=== PATIENT | female | born 1985 | race American Indian/Alaskan Native ===

== ENCOUNTER 2020-07-01 16:36 | Emergency (ER) | payer MEDICAID, MEDICARE ==
--- NOTE | 2020-07-01 18:35 | Event Note ---
ED Screening Note Date of service: 07/01/20 Time: 18:34 ED Screening Note: Patient complains of abdominal pain in x last night Denies vaginal bleeding States 12 weeks This initial assessment/diagnostic orders/clinical plan/treatment(s) is/are subject to change based on patients health status, clinical progression and re- assessment by fellow clinical providers in the ED. Further treatment and workup at subsequent clinical providers discretion. Patient/guardian urged not to elope from the ED as their condition may be serious if not clinically assessed and managed. Initial orders include: Labs Ultrasound
[2020-07-01 19:06] LABS: Basophils % (Auto) 0.3 % (0.0-1.8); Eosinophils # (Auto) 0.1 K/mm3 (0.0-0.4); Eosinophils % (Auto) 1.1 % (0.0-4.3); Hemoglobin 9.4 gm/dl (10.1-14.3); Lymphocytes # (Auto) 1.8 K/mm3 (1.2-5.4); Lymphocytes % (Auto) 21.4 % (13.4-35.0); Mean Corpuscular HGB Conc 32 % (30-34); Mean Corpuscular Volume 86 fl (79-97); Monocytes # (Auto) 0.6 K/mm3 (0.0-0.8); Monocytes % (Auto) 6.8 % (0.0-7.3); Platelet Count 335 K/mm3 (140-440); Red Blood Count 3.36 M/mm3 (3.65-5.03); Red Cell Distribution Width 19.3 % (13.2-15.2)
[2020-07-01 19:21] LABS: Alanine Aminotransferase 10 units/L (7-56); Albumin 3.7 g/dL (3.9-5); Blood Urea Nitrogen 9 mg/dL (7-17); Calcium 9.5 mg/dL (8.4-10.2); Hemolysis Index 10
[2020-07-01 19:23] LABS: BUN/Creatinine Ratio 15
[2020-07-01 19:50] LABS: Bilirubin,Urine NEG (Negative); Blood,Urine NEG (Negative); Color,Urine Yellow (Yellow); Mucus,Urine FEW /HPF; Protein,Urine <15 mg/dL mg/dL (Negative); Urobilinogen,Urine < 2.0 mg/dL (<2.0)
--- NOTE | 2020-07-01 21:29 | Ultrasound Report ---
ULTRASOUND OBSTETRIC INDICATION / CLINICAL INFORMATION: pain in . TECHNIQUE: Transabdominal. COMPARISON: None available. FINDINGS: GESTATIONAL SAC: Well-defined oval shape and intrauterine in location. YOLK SAC: No significant abnormality. EMBRYO/FETUS: No significant abnormality. - Tebbetts-Rump Length = 3.5 cm = 10 weeks, 3 day(s). - Heart Rate, beats per minute (if present) = 157 ADNEXA: Left ovary not visualized secondary to adjacent bowel gas. 6.4 x 7.0 x 5.2 cm right ovarian f ollicular cyst. FREE FLUID: None. ADDITIONAL FINDINGS: None. IMPRESSION: 1. Single, living intrauterine with estimated sonographic age of 10 weeks, 3 day(s). 2. 7 cm right ovarian follicular cyst. No free fluid. 3. Left ovary not visualized Signer Name: Ivan Eisenberg MD Signed: 07/01/2020 9:24 PM Workstation Name: [id number]
--- NOTE | 2020-07-01 22:07 | Emergency Department Report ---
ED Female HPI - General Chief complaint: Weakness Stated complaint: ABD PAIN Time Seen by Provider: 07/01/20 20:03 Source: patient, EMS Mode of arrival: Ambulatory Limitations: No Limitations - History of Present Illness Initial comments: 3 34-year-old female presents emerged department complaining a couple day history of pelvic pain with an unknown etiology but reports no vaginal bleeding no vaginal discharge she is yet to follow-up with MICROECONOMICS PROFESSOR stating that she was waiting to get to the 28-week nelson. Pain is cramping and nature. Repor ts no hematemesis no hematochezia no hematuria no fever, chills, sweats no chest pain or palpitations. MD Complaint: pelvic pain -: Gradual Location: suprapubic Radiation: non-radiating Severity: mild Quality: dull Consistency: constant Improves with: none Worsens with: urination, movement Are you Now?: Yes Associated Symptoms: abdominal pain. denies: vaginal discharge, vaginal bleeding, fever/chills, headaches, loss of appetite, weakness - Related Data Previous Rx's Medication Instructions Recorded Last Taken Type Cyclobenzaprine [Flexeril] 10 mg PO TID PRN #20 tablet 04/20/16 Unknown Rx cephALEXin [Keflex] 500 mg PO Q8HR #21 capsule 07/01/20 Unknown Rx Allergies Allergy/AdvReac Type Severity Reaction Status Date / Time No Known Allergies Allergy Unverified 04/20/16 11:07 ED Review of Systems ROS: Stated complaint: ABD PAIN Other details as noted in HPI Comment: All other systems reviewed and negative ED Past Medical Hx - Past Medical History Previous Medical History?: Yes Hx Arthritis: Yes Additional medical history: PCD, Vaginal delivery X 1 - Surgical History Past Surgical History?: Yes Additional Surgical History: x 2, Left knee, Removal of ovarian cyst - Social History Smoking Status: Current Every Day Smoker Substance Use Type: Alcohol - Medications Home Medications: Home Medications Medication Instructions Recorded Confirmed Last Taken Type Cyclobenzaprine [Flexeril] 10 mg PO TID PRN #20 tablet 04/20/16 Unknown Rx cephALEXin [Keflex] 500 mg PO Q8HR #21 capsule 07/01/20 Unknown Rx ED Physical Exam - General Limitations: No Limitations General appearance: alert, in no apparent distress - Head Head exam: Present: atraumatic, normocephalic - Eye Eye exam: Present: normal appearance, PERRL Pupils: Present: normal accommodation - ENT ENT exam: Present: normal exam, normal orophraynx, mucous membranes moist, TM's normal bilaterally - Neck Neck exam: Present: normal inspection, full ROM - Respiratory Respiratory exam: Present: normal lung sounds bilaterally. Absent: respiratory distress, chest wall tenderness - Cardiovascular Cardiovascular Exam: Present: regular rate, normal rhythm. Absent: systolic murmur, diastolic murmur, rubs, gallop - GI/Abdominal GI/Abdominal exam: Present: soft, normal bowel sounds - Extremities Exam Extremities exam: Present: normal inspection, normal capillary refill - Back Exam Back exam: Present: normal inspection. Absent: CVA tenderness (R), CVA tenderness (L) - Neurological Exam Neurological exam: Present: alert, oriented X3, CN II-XII intact, motor sensory deficit - Psychiatric Psychiatric exam: Present: normal affect, normal mood - Skin Skin exam: Present: warm, dry, intact, normal color. Absent: rash ED Course Vital Signs 07/01/20 16:55 Temperature 98.8 F Pulse Rate 67 Respiratory 18 Rate Blood Pressure 110/64 O2 Sat by Pulse 100 Oximetry ED Medical Decision Making - Lab Data Result diagrams: 07/01/20 18:38 07/01/20 18:38 - Radiology Data Radiology results: [place] [address] Ultrasound Report Signed Patient: SOPHIA SANTIAGO MR#: [id number] : 1985 Acct:[id number] Age/Sex: 34 / F ADM Date: 07/01/20 Loc: ED Attending Dr: Ordering Physician: BRYAN POOLE Date of Service: 07/01/20 Procedure(s): US OB <= 14 weeks fetus Accession Number(s): [id number] cc: BRYAN POOLE ULTRASOUND OBSTETRIC INDICATION / CLINICAL INFORMATION: pain in . TECHNIQUE: Transabdominal. COMPARISON: None available. FINDINGS: GESTATIONAL SAC: Well-defined oval shape and intrauterine in location. YOLK SAC: No significant abnormality. EMBRYO/FETUS: No significant abnormality. - Lebo-Rump Length = 3.5 cm = 10 weeks, 3 day(s). - Heart Rate, beats per minute (if present) = 157 ADNEXA: Left ovary not visualized secondary to adjacent bowel gas. 6.4 x 7.0 x 5.2 cm right ovarian follicular cyst. FREE FLUID: None. ADDITIONAL FINDINGS: None. IMPRESSION: 1. Single, living intrauterine with estimated sonographic age of 10 weeks, 3 day(s). 2. 7 cm right ovarian follicular cyst. No free fluid. 3. Left ovary not visualized Signer Name: Ivan Eisenberg MD Signed: 07/01/2020 9:24 PM Workstation Name: [id number] Transcribed By: TL Dictated By: Ivan Eisenberg MD Electronically Authenticated By: Ivan Eisenberg MD Signed Date/Time: 07/01/202123 DD/ 21 TD/TT: - Medical Decision Making 34-year-old female presenting department complaining of pelvic pain of unknown etiology associated with some vague dysuria. She is found to have ovarian cyst and early signs of urinary tract infection involved and she was treated accordingly. Ultrasound did not show any emergent or urgent issues. No complications with help her via the ultrasound she is been advised to follow-up with an MICROECONOMICS PROFESSOR sooner than she had originally planned to follow along with her during this . Critical care attestation.: If time is entered above; I have spent that time in minutes in the direct care of this critically ill patient, excluding procedure time. ED Disposition Clinical Impression: Pelvic pain during in first trimester, antepartum, UTI (urinary tract infection), Ovarian cyst Disposition: DC-01 TO HOME OR SELFCARE Is pt being admited?: No Does the pt Need Aspirin: No Condition: Stable Instructions: Pelvic Pain, Female, [id number], Urinary Tract Infection, Adult, and Urinary Tract Infection Prescriptions: cephALEXin [Keflex] 500 mg PO Q8HR #21 capsule Referrals: PRIMARY CARE, [Primary Care Provider] - 3-5 Days [facility] [Provider Group] - 3-5 Days
[2020-07-01 22:35] VITALS: BP 115/70
== END 2020-07-01 22:35 | disposition home or self-care (01) ==
LOC: ED 16:36
DX: O23.41 Unspecified infection of urinary tract in pregnancy, first trimester (principal); O26.891 Other specified pregnancy related conditions, first trimester; O34.81 Maternal care for other abnormalities of pelvic organs, first trimester; N83.201 Unspecified ovarian cyst, right side; R10.2 Pelvic and perineal pain; M19.91 Primary osteoarthritis, unspecified site; F17.200 Nicotine dependence, unspecified, uncomplicated; Z3A.10 10 weeks gestation of pregnancy; Z98.890 Other specified postprocedural states; Z79.899 Other long term (current) drug therapy
CPT/HCPCS: 36415; 76801; 80053; 81001; 84702; 85025; 87086

== ENCOUNTER 2020-09-06 13:28 | Outpatient (CLI) | payer MEDICAID ==
[2020-09-06] MEDS ORDERED: LACTATED RINGERS 1,000 ML IV ONE (14:42)
[2020-09-06 15:07] LABS: Bacteria,Urine 1+ /HPF (Negative); Bilirubin,Urine NEG (Negative); Blood,Urine NEG (Negative); Color,Urine Yellow (Yellow); Urobilinogen,Urine < 2.0 mg/dL (<2.0)
--- NOTE | 2020-09-06 16:46 | Event Note ---
Date: 09/06/20 (pt d/c after assessment) Spoke with pt at length @ coming in for care. Pt states she has 2 kids and the office said only one can come with her. Asked pt to call office and make arrangment to be seen To not risk dismissal. Pt voiced understanding.
[2020-09-06 16:50] VITALS: BP 118/63
== END 2020-09-06 16:50 | disposition home or self-care (01) ==
LOC: TRG 13:28 → APU 13:36 → TRG 16:50
PROVIDERS: ATTEND Obstetrics & Gynecology
DX: O26.892 Other specified pregnancy related conditions, second trimester (principal); R10.9 Unspecified abdominal pain; M54.5 Low back pain; Z3A.20 20 weeks gestation of pregnancy
CPT/HCPCS: 81001; 87086

== ENCOUNTER 2020-10-04 15:59 | Outpatient (CLI) | payer OTHER, MEDICAID ==
[2020-10-04] MEDS ORDERED: LACTATED RINGERS 1,000 ML IV SCH (16:15)
[2020-10-04 16:32] VITALS: BP 107/56
--- NOTE | 2020-10-04 16:51 | Event Note ---
Date: 10/04/20 pt in triage c/o lower back pain and lower abd pain since this morning. She denies bleeding or leaking. pt reports hx of PTL. 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 SVE closed/thick/oop. + FM, fht NL for gestation. FFN collected. Plan for IV hydration and to send UA.
[2020-10-04 16:52] LABS: Bacteria,Urine 3+ /HPF (Negative); Bilirubin,Urine NEG (Negative); Blood,Urine NEG (Negative); Color,Urine Yellow (Yellow); Hyaline Casts,Urine 1 /LPF; Mucus,Urine FEW /HPF; Urobilinogen,Urine < 2.0 mg/dL (<2.0)
[2020-10-04] MEDS ORDERED: cefTRIAXone/NS 1 GM/50 ML 1 GM/50 ML BAG IV ONE (18:22)
== END 2020-10-04 19:44 | disposition home or self-care (01) ==
LOC: TRG 15:59 → APU 16:00 → TRG 19:44
PROVIDERS: ATTEND Obstetrics & Gynecology
DX: O26.892 Other specified pregnancy related conditions, second trimester (principal); M54.5 Low back pain; R10.30 Lower abdominal pain, unspecified; O47.02 False labor before 37 completed weeks of gestation, second trimester; Z3A.24 24 weeks gestation of pregnancy
CPT/HCPCS: 36415; 81001; 82731; 87086; 96361; 96365; J0696; J7120; Q0177

== ENCOUNTER 2020-12-01 14:37 | Outpatient (CLI) | payer OTHER, MEDICAID ==
[2020-12-01 14:53] VITALS: BP 119/76
[2020-12-01] MEDS ORDERED: LACTATED RINGERS 500 ML IV ONE (15:23)
[2020-12-01] MEDS ORDERED: ONDANSETRON 4 MG/2 ML INJ IV ONE (15:23)
[2020-12-01 16:44] LABS: Bacteria,Urine 1+ /HPF (Negative); Bilirubin,Urine NEG (Negative); Blood,Urine NEG (Negative); Color,Urine Yellow (Yellow); Protein,Urine <15 mg/dL mg/dL (Negative); Urobilinogen,Urine < 2.0 mg/dL (<2.0)
== END 2020-12-01 19:05 | disposition home or self-care (01) ==
LOC: TRG 14:37 → APU 15:03 → TRG 19:05
PROVIDERS: ATTEND Obstetrics & Gynecology
DX: O21.2 Late vomiting of pregnancy (principal); O10.913 Unspecified pre-existing hypertension complicating pregnancy, third trimester; O99.343 Other mental disorders complicating pregnancy, third trimester; F31.9 Bipolar disorder, unspecified; O47.03 False labor before 37 completed weeks of gestation, third trimester; Z3A.32 32 weeks gestation of pregnancy
CPT/HCPCS: 59025; 81001; 87086; 96361; 96374; J2405; J7120; 96360

== ENCOUNTER 2020-12-21 23:22 | Outpatient (CLI) | payer MEDICAID, OTHER ==
[2020-12-21] MEDS ORDERED: LACTATED RINGERS 1,000 ML IV ONE (23:55)
[2020-12-22 00:01] VITALS: BP 129/79
[2020-12-22 00:14] LABS: Bacteria,Urine 1+ /HPF (Negative); Bilirubin,Urine NEG (Negative); Blood,Urine NEG (Negative); Color,Urine Yellow (Yellow); Mucus,Urine FEW /HPF; Urobilinogen,Urine < 2.0 mg/dL (<2.0)
[2020-12-22] MEDS ORDERED: cefTRIAXone/NS 1 GM/50 ML 1 GM/50 ML BAG IV ONE (01:48)
[2020-12-22] MEDS ORDERED: ACETAMINOPHEN 500 MG TAB PO ONE (01:49)
== END 2020-12-22 02:35 | disposition home or self-care (01) ==
LOC: TRG 23:22 → APU 23:30 → TRG 12-22 02:35
PROVIDERS: ATTEND Obstetrics & Gynecology
DX: O62.9 Abnormality of forces of labor, unspecified (principal); O26.893 Other specified pregnancy related conditions, third trimester; M54.5 Low back pain; Z3A.35 35 weeks gestation of pregnancy
CPT/HCPCS: 59025; 81001; 87086; 96361; 96365; J0696; J7120; 96360

== ENCOUNTER 2021-01-11 15:19 | Outpatient (CLI) | payer OTHER, MEDICAID ==
[2021-01-11 16:16] VITALS: BP 133/83
--- NOTE | 2021-01-11 17:06 | Ultrasound Report ---
ULTRASOUND OBSTETRIC LIMITED ULTRASOUND BIOPHYSICAL PROFILE INDICATION / CLINICAL INFORMATION: well being. COMPARISON: None available. FINDINGS: BREATHING MOVEMENT = 2 GROSS BODY MOVEMENT = 2 TONE = 2 QUALITATIVE AMNIOTIC FLUID VOLUME = 2 TOTAL BIOPHYSICAL SCORE = 8/8 AMNIOTIC FLUID INDEX (cm) = 10.3 PRESENTATION: Cephalic. HEART RATE (beats per minute): 125 ADDITIONAL FINDINGS: None. IMPRESSION: 1. Biophysical Score = 8/8 Signer Name: Ivan Eisenberg MD Signed: 01/11/2021 5:02 PM Workstation Name: [id number]
== END 2021-01-11 16:35 | disposition home or self-care (01) ==
LOC: TRG 15:19 → APU 15:20 → TRG 16:35
PROVIDERS: ATTEND Obstetrics & Gynecology
DX: Z34.93 Encounter for supervision of normal pregnancy, unspecified, third trimester (principal); Z3A.38 38 weeks gestation of pregnancy
CPT/HCPCS: 59025; 76815; 76819

== ENCOUNTER 2021-01-17 07:30 | Inpatient (IN) | payer MEDICAID, OTHER ==
--- NOTE | 2021-01-16 13:47 | History and Physical Report ---
History of Present Illness Date of examination: 01/11/21 Date of admission: 01/16/2021 Chief complaint: here for c/s pre op History of present illness: Pt presents for pre op for c/s. All risk, benefits and alternatives were d/w pt and questions were addressed and answered. pt was noted to have audible decel while in the office and was sent to triage for evaluation. Triage nurse and providers chicken boner aware pt coming and stressed importance of f/u to evaluate for well being. Pt expressed understanding. Consents were signed and given to pt to bring to hospital on day of c/s. EDC Calculations LMP: 01/13/2021 EDC Confirmation: 01/24/2021 Gestational Age: 6 6/7 weeks Past History : 4 Term Births: 2 Premature Births: 1 Living Children: 3 Para: 3 Mult. Births: 0 Prev : 2 Aborta: 0 Elect. Ab: 0 Spont. Ab: 0 Ectopics: 0 # 1 Delivery date: 01/04/2008 Weeks Gestation: labor: yes Delivery type: Anesthesia type: epidural Infant Sex: Male weight: 3-11 Comments: Went into labor and had distress # 2 Delivery date: 02/01/2017 Weeks Gestation: term labor: no Delivery type: Anesthesia type: epidural Sex: Female weight: 5-11 # 3 Delivery date: 01/21/2019 Weeks Gestation: term labor: no Delivery type: Anesthesia type: spinal Sex: Male weight: 5-17 Past Medical History: Reviewed history and no changes required: Anemia Polycysitc kidney disease cHTN: no medications Sickle cell trait Bipolar Disease Depression Past Surgical History: Reviewed history and no changes required: Knee surgery : 2018 Past Medical History Anemia: positive Blood Transfusions: positive, Has had 7 blood transfusions Breast Disease: negative Diabetes: negative Heart Disease: negative Hypertension: positive, cHTN diagnosis, no meds Hepatitis/Liver Disease: negative Kidney Disease/UTI: positive, Polycystic kidney disease Neurologic/Epilepsy/Migraines: negative Phlebitis/Varicosities: negative Psychiatric: positive, Bipolor and depression Pulmonary Disease/Asthma: negative Thyroid Disease: negative Hospitalizations: positive Surgery (Non-cellular plastics cutter): Knee surgery : 2018 Abnormal PAP: negative ROMAN Exposure: negative Infertility: negative Uterine Anomaly: negative Uterine Surgery (not C/S): negative Other Gynecologic Problems: negative Family Hx: Kidney disease: MGM, mother HTN Infection History Hx of STD: none HIV Risk Eval: no Hepatitis B Risk Eval: low risk Personal hx. of genital herpes: no Partner hx. of genital herpes: no Rash, Viral, or Febrile illness since last LMP? no Varicella/Chicken Pox Status: Previous Disease TB Risk: no Genetic History Congenital Heart Defect: Mom: no Dad: no Aditi Disease: Mom: no Dad: no Thalassemia Mom: no Dad: no Neural Tube Defect Mom: no Dad: no Down's Syndrome Mom: no Dad: no James-Sachs Mom: no Dad: no Sickle Cell Disease/Trait Mom: yes Dad: no Hemophilia Mom: no Dad: no Muscular Dystrophy Mom: no Dad: no Cystic Fibrosis Mom: no Dad: no Ness Chorea Mom: no Dad: no Mental Retardation Mom: no Dad: no Fragile X Mom: no Dad: no Other Genetic/Chromosomal Disorder Mom: no Dad: no Child w/other defect Mom: no Dad: no Enviromental Exposures Enviromental Exposures Reviewed Xray Exposure: no Medication, drug, or alcohol use since LMP: no Chemical/Other Exposure: no Exposure to Cat Liter: no Hx of Parvovirus (Fifth Disease): no Occupational Exposure to Children: none Active Medications (reviewed today): 28-0.8 MG ORAL TABLET ( VIT-FE FUMARATE-FA) Take one tablet daily ONDANSETRON 8 MG ORAL TABLET DISINTEGRATING (ONDANSETRON) 1 po q12hrs prn PNV GUMMIES () Current Allergies (reviewed today): * SEASONAL ALLERGIES (Critical) Past History Past Medical History: other (see hpi) Past Surgical History: other (see hpi) HUMAN RELATIONS PROFESSOR History: other (see hpi) Family/Genetic History: other (see hpi) Social history: other (see hpi) - Obstetrical History Expected Date of Delivery: 01/24/21 Actual Gestation: 38 Week(s) 6 Day(s) : 4 Para: 3 Hx # Term Pregnancies: 2 Number of Pregnancies: 1 Number of Living Children: 3 Medications and Allergies Allergies Allergy/AdvReac Type Severity Reaction Status Date / Time No Known Allergies Allergy Verified 12/01/20 14:56 Home Medications Medication Instructions Recorded Confirmed Last Taken Type Cyclobenzaprine [Flexeril] 10 mg PO TID PRN #20 tablet 04/20/16 Unknown Rx cephALEXin [Keflex] 500 mg PO Q8HR #21 capsule 07/01/20 Unknown Rx Nitrofurantoin Brooks/M-Cryst 100 mg PO Q12HR #14 capsule 09/06/20 Unknown Rx [Macrobid CAP] Review of Systems All systems: negative - Physical Exam Cardiovascular: Normal S1, Normal S2 Lungs: Positive: Clear to auscultation, Normal air movement Abdomen: Positive: normal appearance, soft. Negative: guarding Genitourinary (Female): Positive: other (deferred) Results All other labs normal. Assessment and Plan - Patient Problems (1) 39 weeks gestation of Status: Acute (2) Previous delivery affecting , antepartum Status: Acute Plan to address problem: -admit and prepare for c/s -consents were signed and given to pt to bring to hospital and copies placed on the chart.
[~2021-01-17 07:30] MED LIST: BICITRA ORAL LIQD 30ML PO NR; FAMOTIDINE 20 MG/2 ML INJ IV NR; LACTATED RINGERS 1,000 ML IV SCH; METOCLOPRAMIDE 10 MG/2 ML INJ IV NR; OXYTOCIN DRIP 30 UNITS/500 ML BAG IV SCH; ceFAZolin/Water 2 GM/20 ML 2 GM/20 ML SYRINGE IV NR
[2021-01-17 14:19] LABS: Basophils # (Auto) 0.1 K/mm3 (0.0-0.1); Eosinophils # (Auto) 0.1 K/mm3 (0.0-0.4); Eosinophils % (Auto) 0.6 % (0.0-4.3); Hemoglobin 11.3 gm/dl (10.1-14.3); Lymphocytes # (Auto) 2.1 K/mm3 (1.2-5.4); Lymphocytes % (Auto) 22.3 % (13.4-35.0); Mean Corpuscular HGB Conc 33 % (30-34); Mean Corpuscular Volume 93 fl (79-97); Monocytes # (Auto) 0.5 K/mm3 (0.0-0.8); Monocytes % (Auto) 5.5 % (0.0-7.3); Platelet Count 233 K/mm3 (140-440); Red Blood Count 3.65 M/mm3 (3.65-5.03); Red Cell Distribution Width 13.6 % (13.2-15.2)
[2021-01-17] MEDS ORDERED: BUPIVACAINE/PF (0.5%) 5 MG/1 ML 30 ML VIAL INFILTRATI ONE (15:17)
[2021-01-17] MEDS ORDERED: PHENYLEPHRINE 10 MG/1 ML INJ SDV ONE (15:17)
[2021-01-17] MEDS ORDERED: dexAMETHasone 20 MG/5 ML VIAL ONE (15:17)
[2021-01-17] MEDS ORDERED: KETOROLAC 30 MG/1 ML INJ ONE (15:17)
[2021-01-17] MEDS ORDERED: SODIUM CHLORIDE 0.9% 100 ML ONE (15:17)
[2021-01-17] MEDS ORDERED: ONDANSETRON 4 MG/2 ML INJ ONE (15:17)
--- NOTE | 2021-01-17 15:21 | Anesthesia Consultation ---
Anesthesia Consult and Med Hx Date of service: 01/17/21 - Airway Anesthetic Teeth Evaluation: Good ROM Head & Neck: Adequate Mental/Hyoid Distance: Adequate Mallampati Class: Class II Intubation Access Assessment: Probably Good - Pulmonary Exam CTA: Yes - Cardiac Exam Cardiac Exam: RRR - Pre-Operative Health Status ASA Pre-Surgery Classification: ASA3 Proposed Anesthetic Plan: Spinal - Pulmonary Hx Asthma: No COPD: No Hx Pneumonia: No - Cardiovascular System Hx Hypertension: Yes - Central Nervous System Hx Seizures: No Hx Psychiatric Problems: Yes (BIPOLAR, DEPRESSION) - Endocrine Hx Renal Disease: Yes (POLYCYSTIC KIDNEY) Hx End Stage Renal Disease: No Hx Hypothyroidism: No Hx Hyperthyroidism: No - Hematic Hx Anemia: Yes Hx Sickle Cell Disease: No - Other Systems Hx Alcohol Use: No
--- NOTE | 2021-01-17 15:21 | Anesthesia Day of Surgery ---
Anesthesia Day of Surgery - Day of Surgery Patient Examined: Yes Patient H&P Reviewed: Yes Patient is NPO: Yes
[2021-01-17] MEDS ORDERED: ceFAZolin/STERILE WATER 2 GM/20 ML SYRINGE IV ONE (16:45)
[2021-01-17] MEDS ORDERED: WATER FOR IRRIG STERILE 1,500 ML BOTTLE IR ONE (16:55)
[2021-01-17] MEDS ORDERED: SODIUM CHLORIDE 0.9% IRR 1,500 ML BOTTLE IR ONE (16:55)
[2021-01-17] MEDS ORDERED: ePHEDrine SULFATE 50 MG/1 ML INJ ONE (17:35)
--- NOTE | 2021-01-17 18:00 | Operative Report ---
Operative Report Operative Report: Date of procedure: 01/17/2021 Pre-operative diagnosis: Intrauterine at 39 weeks with previous xander dung section x2 Post-operative diagnosis: Same Procedure name(s): Repeat low transverse section Surgeon: Jose Antonio Reid MD Artificial Candy Maker: Whitney Coombs CST Anesthesia: Spinal EBL: QBL 321 cc Complications: None Findings: Patient with normal appearing uterus with adhesions on anterior uterus to bladder and omentum to the rectus muscles male infant weight 5 pounds 14 ounc es Apgars 8 at 1 minute and 9 at 5 minutes Specimen(s): None Procedure: The patient was brought to the operating room. A spinal was placed without any complications. She was then placed in left lateral tilt. Prepped and draped in the usual sterile manner. After testing for adequate anesthesia level, a Pfannenstiel incision was made through her previous scar. This incision was taken down to the fascia. The fascia was then nicked in the midline. This incision was extended out laterally with Alberto scissors. The fascia was then sharply and bluntly from the underlying rectus m uscles. The omental adhesions were taken down with cautery. The rectus muscles were bluntly and sharply . The peritoneum was then entered with the tracer lathe set up operator's fingers. This incision was spread vertically with care not to damage the bladder below. The bladder flap was then formed sharply and bluntly with Metzenbaum scissors. The Ashwin self-retaining tractor was then placed without any difficulty. A transverse incision was made in lower uterine segment. This incision was extended laterally with the operators fingers. The amniotic sac was then entered bluntly with the tracer lathe set up operator's fingers. The was delivered from the vertex position. Bulb suction on the mother's abdomen. Cord was double clamped and cut. The infant was then passed to the nursery personnel who were in attendance. The above scores were given by the nursery personnel. The placenta was then bluntly removed. The uterus was then externalized and wiped clean the remaining products. The uterine incision was closed in layers. The first incision was closed in a locking manner using 0 Vicryl. This was followed by imbricating stitch also with 0 Vicryl. This closure was hemostatic. The bladder flap was copiously irrigated and found to be hemostatic. The pelvis was copiously irrigated and found to be hemostatic. The uterus was then placed back to the patient's abdomen. The retractors were removed. The rectus muscles were inspected and found to be hemostatic. The fascia was then closed in a running manner using 0 Vicryl. This incision was hemostatic after irrigation and Bovie. The disc space was reapproximated with interrupted Vicryl sutures. The skin was reapproximated with 4-0 Vicryl subcuticularly. Dermabond was placed along the skin closure. The patient tolerated procedure well. Her urine was clear. The was admitted to the well baby nursery. The patient was accompanied to recovery room in good condition. Instrument count correct x3.
--- NOTE | 2021-01-17 18:02 | Progress Note ---
Spinal Anesthesia Block - Spinal Anesthesia Block Start Time: 16:32 Stop Time: 16:40 Performed by:: TUSHAR BUI Procedure: Sitting, sterile chlorahexadine 0.5% prep/drape, 1% lidocaine skin local, 25G spinal needle + introducer at L3-4, + CSF, - Heme, [1.9 ml 0.5% bupivacaine + 10 mcg dexmedetomidine] injected, drape removed, patient positioned supine with left uterine displacement, and spinal level verified to be adequate prior to surgery. SRNA
--- NOTE | 2021-01-17 18:03 | Progress Note ---
Regional Anesthesia Block - Regional Anesthesia Block Start Time: 17:50 Stop Time: 17:55 Performed By:: TUSHAR BUI Procedure: U/S guided bilateral tap block performed for post-operative pain requested by Dr. Reid. H&P & labs reviewed. Procedure explained, questions answered, consent obtained. Patient in the supine position with ekg, blood pressure cuff and pulse ox on and working in PACU. Timeout performed immediately before start of procedure. Probe placed in the mid-axillary line and the external oblique, internal oblique, and transverse abdominus muscles identified. Skin was cleansed with chlorahexadine 0.5% and allowed to dry. A 4" 20 G Caceres echogenic needle was advanced in plane until the tip was in the fascial plane between the internal oblique and the transverse abdominus. After negative aspiration 35 ml/side of [30 ml 0.5% Bupivacaine], [10 mg dexamethasone], and [40 ml sterile saline] was injected in 5 ml increments with negative aspiration in between. Patient tolerated procedure well. SRNA
[2021-01-17 19:38] LABS: Hematocrit 32.3 % (30.3-42.9); Hemoglobin 10.9 gm/dl (10.1-14.3); Mean Corpuscular HGB Conc 34 % (30-34); Mean Corpuscular Volume 94 fl (79-97); Platelet Count 179 K/mm3 (140-440); Red Blood Count 3.45 M/mm3 (3.65-5.03); Red Cell Distribution Width 13.5 % (13.2-15.2)
[2021-01-17] MEDS ORDERED: OXYTOCIN DRIP 30 UNITS/500 ML BAG IV SCH (20:54)
[2021-01-17] MEDS ORDERED: WITCH HAZEL/ GLYCERIN PAD TP PRN (20:54)
[2021-01-17] MEDS ORDERED: NALOXONE 0.4 MG/1 ML INJ IV PRN (20:54)
[2021-01-17] MEDS ORDERED: HYDROcodone/ACETAMINOPHEN 5-325 MG TAB PO PRN (20:54)
[2021-01-17] MEDS ORDERED: MAGNESIUM HYDROXIDE (MOM) ORAL LIQD UDC PO PRN (20:54)
[2021-01-17] MEDS ORDERED: D5W/LACTATED RINGERS 1,000 ML IV SCH (20:54)
[2021-01-17] MEDS ORDERED: LANOLIN/ZINC/DIMETHICONE (LANSINOH) 7 GM TP PRN (20:54)
[2021-01-17] MEDS ORDERED: ONDANSETRON 4 MG/2 ML INJ IV PRN (20:54)
[2021-01-17] MEDS: KETOROLAC 30 MG/1 ML INJ IV SCH (22:56)
[2021-01-18] MEDS: ceFAZolin/NS 1 GM/50 ML 1 GM/50 ML BAG IV SCH ×2 (01:30→09:07)
[2021-01-18] MEDS: KETOROLAC 30 MG/1 ML INJ IV SCH ×2 (05:02→14:29)
[2021-01-18] MEDS ORDERED: HYDROcodone/ACETAMINOPHEN 5-325 MG TAB PO ONE (05:59)
[2021-01-18 06:58] LABS: Hematocrit 25.4 % (30.3-42.9); Hemoglobin 8.6 gm/dl (10.1-14.3)
--- NOTE | 2021-01-18 07:14 | Progress Note ---
Assessment and Plan A: 35 y.o. s/p rpt , POD #1. P: Continue with care. Encourage early ambulation. Pain medication changed to 2 pills PO q 6 hrs. Anticipate discharge home in AM. Subjective - Subjective Date of service: 01/18/21 (States having some pain. ) Principal diagnosis: Rpt @ term. Patient reports: appetite normal, voiding normally, flatus, pain poorly controlled (Pain medication changed to 2 PO q 6 hrs. ), ambulating normally [place]: doing well Objective - Vital Signs Latest vital signs: Vital Signs Temp Pulse Resp BP BP Pulse Ox 01/18/21 04:59 98.2 F 65 20 118/58 97 01/18/21 04:00 18 01/18/21 00:36 18 01/17/21 23:44 97.4 F L 62 18 127/71 100 01/17/21 20:30 97.4 F L 48 L 16 160/83 100 01/17/21 18:25 46 L 14 158/85 100 01/17/21 18:10 45 L 14 158/86 100 01/17/21 17:56 44 L 14 115/76 100 01/17/21 17:51 53 L 14 107/68 100 01/17/21 17:45 63 12 119/70 100 01/17/21 17:42 97.6 F 64 14 128/69 100 01/17/21 15:16 57 L 141/85 01/17/21 14:48 71 99 01/17/21 14:42 57 L 163/85 01/17/21 14:40 97.8 F 66 16 163/85 100 Intake and Output 01/17/21 01/18/21 01/18/21 22:59 06:59 14:59 Intake Total 950 920 Output Total 1500 1050 Balance -550 -130 Intake: IV 950 Oral 680 Intake, Free Water 240 Output: Urine 1500 1050 Indwelling Catheter 200 200 Uretheral (Dsouza) 400 850 Other: Total, Intake Amount 200 Total, Output Amount 200 200 Estimated Blood Loss 462 - Exam Breasts: Present: deferred Cardiovascular: Present: Regular rate Lungs: Present: Clear to auscultation Abdomen: Present: normal appearance, soft, other (Hypoactive bowel sounds) Uterus: Present: normal, firm Extremities: Present: normal Deep Tendon Reflex Grade: Normal +2 Incision: Present: normal, dry, intact - Labs Labs: Abnormal lab results 01/17/21 01/17/21 01/18/21 Range/Units 14:00 18:54 06:40 RBC 3.45 L (3.65-5.03) M/mm3 Hgb 8.6 L (10.1-14.3) gm/dl Hct 25.4 L D (30.3-42.9) % Seg Neutrophils % 70.6 H (40.0-70.0) %
[2021-01-18] MEDS: FERROUS SULFATE 325 MG TAB PO SCH (09:07)
--- NOTE | 2021-01-18 13:15 | Event Note ---
Date: 01/18/21 (Smoking) Received a call from the RN that patient has been going outside to smoke. Discussed with patient that she should not smoke around the baby and she can not go outside to smoke. Pt states she has only been outside one time to smoke and has not been outside since this AM. Pt agrees to a nicotine patch. Ordered placed. Also we discussed that patient can not go home today, but will be discharged in the AM if she remains stable. Patient verbalized understanding.
[2021-01-18] MEDS: HYDROcodone/ACETAMINOPHEN 5-325 MG TAB PO PRN ×2 (13:33→18:41)
[2021-01-18] MEDS ORDERED: NICOTINE 21 MG/24 HR PATCH TD SCH (14:00)
--- NOTE | 2021-01-18 17:42 | Post Anesthesia Evaluation ---
- Post Anesthesia Evaluation Patient Participated: Yes Airway Patent: Yes Stable Respiratory Function: Yes Nausea/Vomiting: No Temp > 96.8F: Yes Pain Manageable: Yes Adequeate Hydration: Yes Anesthesia Complications: No Block Receding Appropriately: Yes
[2021-01-18] MEDS ORDERED: IBUPROFEN 800 MG TAB PO PRN (17:46)
--- NOTE | 2021-01-18 19:13 | Event Note ---
Date: 01/18/21 (Mental health assessment ordered.) Received a call from RN that patient's depression scale score was 17. A mental health assessment was ordered at this time. Also patient was on Zoloft prenatally. Zoloft 50mg daily ordered. RN aware of Zoloft order.
[2021-01-18] MEDS: SERTRALINE 50 MG TAB PO SCH (23:30)
[2021-01-19] MEDS: HYDROcodone/ACETAMINOPHEN 5-325 MG TAB PO PRN ×2 (01:35→07:49)
--- NOTE | 2021-01-19 07:17 | Discharge Summary ---
Providers - Providers Date of Admission: 01/17/21 13:15 Date of discharge: 01/19/21 (Pt desires d/c She is aware MH must clear her for d/c ) Attending physician: NERIS ECHEVERRIA 01/17/21 20:54 Consult to Service Secretary [CONS] Routine Reason For Exam: 01/18/21 18:47 psychiatry consult [Consult to Mental Health] [CONS] Routine Reason For Exam: [place] Score 17 Primary care physician: NERIS ECHEVERRIA Hospitalization Reason for admission: section, IUP at term Procedure: repeat low transverse Episiotomy: none Laceration: none Incision: normal, dry, intact Other procedures: none complications: other (ED score 17 consult) Discharge diagnosis: IUP at term delivered [place] baby: male Condition at discharge: Good Disposition: DC-01 TO HOME OR SELFCARE - Discharge Diagnoses (1) delivery delivered Status: Acute Comment: RTO 1 week PP care (2) Depression Status: Acute Qualifiers: Depression Type: depression Qualified Code(s): O99.345 - Other mental disorders complicating the puerperium; F53.0 - depression; O90.6 - mood disturbance Comment: Pt will d/c on Zoloft 50mg QD Will hold d/c until released by Plan - Discharge Medications Prescriptions: Lidocain2.5%/Prilocai2.5% [Emla] 5 gm TP ONCE #1 tube Ferrous Sulfate [Feosol 325 MG tab] 325 mg PO BID #60 tablet Ibuprofen [Motrin] 800 mg PO TID PRN #30 tablet PRN Reason: Pain oxyCODONE /ACETAMINOPHEN [Percocet 5/325 mg] 1 - 2 tab PO Q6HR PRN #20 tablet PRN Reason: Pain - Provider Discharge Summary Activity: routine, no sex for 6 weeks, no heavy lifting 4 weeks, no strenuous exercise, other (STOP SMOKING) Diet: routine Instructions: routine Additional instructions: [] Smoking cessation referral if applicable(refer to patient education folder for contact #) [] Refer to [facility]'s [facility] Booklet Call your doctor immediately for: * Fever > 100.5 * Heavy vaginal bleeding ( >1 pad per hour) * Severe persistent headache * Shortness of breath * Reddened, hot, painful area to leg or breast * Drainage or odor from incision. * Keep incision clean and dry at all times and follow doctor's instructions regarding bathing/showering - Follow up plan Follow up: NERIS ECHEVERRIA MD [Primary Care Provider] - 7 Days (Congratulations! Please call [phone] to schedule your postoperative visit and your son's circumcision in 1 week. Bring the EMLA cream with you to his visit. Do NOT use at home. Take medications as prescribed. Call with concerns.)
--- NOTE | 2021-01-19 08:44 | Consultation ---
History of Present Illness - Reason for Consult Consult date: 01/19/21 Reason for consult: MHE Requesting physician: NERIS ECHEVERRIA - Chief Complaint Chief complaint: here for c/s pre op - History of Present Psychiatric Illness PSYCH HPI Patient is a 35 year old single unemployed, Female with PMHx of Bipolar and Depression who was admitted for child delivery and subsequent psych consult for elevated endinburgh. Patient states she has not been on her meds due to , endorses having intermittent mood cycle sometimes depressed and not but denies suicidal thoughts. Patient she plans not to breastfeed so she can restart her medications. She endorses prior admission for anger management but no suicidal attempt in the past. Patient states she currrently resides with her BF and 4 other kids and was angry yesterday because they would not let her smoke. PAST PSYCHIATRIC HISTORY Diagnoses: Bipolar, depression and anxiety Suicide attempts or Self-harm behavior: None Prior psychiatric hospitalizations: yes for anger management Substance Abuse history: marijuana Previous psychiatric medications tried: trazodone Outpatient treatment: PAST MEDICAL HISTORY: PCKD, SS Family Psychiatric History: None reported or documented SOCIAL HISTORY Marital Status: single Living Arrangements: with Employment Status: unemployed Access to guns/weapons: none Education: college drop out History of Abuse: none Legal History: none REVIEW OF SYSTEMS Constitutional: Negative for weight loss ENT: Negative for stridor Respiratory: Negative for cough or hemoptysis All other systems reviewed and are negative MENTAL STATUS EXAMINATION General Appearance and Behavior: Age appropriate, good hygiene, wearing appropriate clothes,, good eye contact Cooperation: Participating/engaged, but Guarded Psychomotor Behavior: Psychomotor normal Mood: "on and Off" Affect and affective range:flat Thought Process: logical Thought Content: within reality Speech: Normal rate, volume and rythm Intellectual Functioning: Average Suicidal Ideation: denies SI Homicidal Ideation: Denies HI Impulse Control: Impaired Insight and Judgment: Limited insight and judgment Memory: Normal Attention: Normal Orientation: Alert, oriented Diagnoses: His of Bipoalr Treatment Plan MEDICATIONS: pt can start Trazodone and Zoloft with outpt psychiatry follow up Risks, benefits and alternatives of medications discussed with the patient, questions answered and consent obtained from patient. PSYCHOTHERAPY: Supportive psychotherapy provided MEDICAL: Per primary team DELIRIUM PRECAUTIONS: Please re-orient patient frequently, keep lights on during the day, and minimize benzodiazepines and opiates as these medications could worsen patient's confusion. 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 Case discussed with Dr. Solomon who agrees with current disposition LEGAL STATUS: voluntary FOLLOW-UP: Will sign Thank you for the consult. Please contact with any questions and/or concerns. Medications and Allergies Allergies Allergy/AdvReac Type Severity Reaction Status Date / Time No Known Allergies Allergy Verified 01/17/21 13:44 Home Medications Medication Instructions Recorded Confirmed Last Taken Type Cyclobenzaprine [Flexeril] 10 mg PO TID PRN #20 tablet 04/20/16 01/17/21 Unknown Rx cephALEXin [Keflex] 500 mg PO Q8HR #21 capsule 07/01/20 01/17/21 Unknown Rx Nitrofurantoin [place]/M-Cryst 100 mg PO Q12HR #14 capsule 09/06/20 01/17/21 Unknown Rx [Macrobid CAP] Ferrous Sulfate [Feosol 325 MG tab] 325 mg PO BID #60 tablet 01/17/21 Unknown Rx Ibuprofen [Motrin] 800 mg PO TID PRN #30 tablet 01/17/21 Unknown Rx Lidocain2.5%/Prilocai2.5% [Emla] 5 gm TP ONCE #1 tube 01/17/21 Unknown Rx Multivitamin Tablet 1 tab PO DAILY 01/17/21 01/17/21 01/16/21 10:00 History oxyCODONE /ACETAMINOPHEN [Percocet 1 - 2 tab PO Q6HR PRN #20 tablet 01/17/21 Unknown Rx 5/325 mg] Sertraline [Zoloft] 50 mg PO QDAY #30 tablet 01/19/21 Unknown Rx traZODone [Desyrel] 50 mg PO QHS #30 tab 01/19/21 Unknown Rx Active Meds: Active Medications Hydrocodone Bitart/Acetaminophen (Hydrocodone/Acetaminophen 5-325 Mg Tab) 2 each PO Q6H PRN PRN Reason: Pain, Moderate (4-6) Last Admin: 01/19/21 07:49 Dose: 2 each Documented by: Ferrous Sulfate (Ferrous Sulfate 325 Mg Tab) 325 mg PO QDAY OSMAN Last Admin: 01/18/21 09:07 Dose: 325 mg Documented by: Dextrose/Lactated Ringer's ([email or web address]) 1,000 mls @ 125 mls/hr IV DIRECT OSMAN Oxytocin/Sodium Chloride (Pitocin/Ns 30 Unit/500ml) 30 units in 500 mls @ 40 mls/hr IV TITR OSMAN Ibuprofen (Ibuprofen 800 Mg Tab) 800 mg PO Q6H PRN PRN Reason: Pain, Moderate (4-6) Magnesium Hydroxide (Magnesium Hydroxide (Mom) Oral Liqd Udc) 30 ml PO QHS PRN PRN Reason: Constip Unrelieved By Senna Multi-Ingredient Ointment (Lanolin/Zinc/Dimethicone (Lansinoh) 7 Gm) 1 applic TP PRN PRN PRN Reason: dryness/cracking Naloxone HCl (Naloxone 0.4 Mg/1 Ml Inj) 0.1 mg IV Q2MIN PRN PRN Reason: Res Rate </= 8 or 02 SAT < 92% Nicotine (Nicotine 21 Mg/24 Hr Patch) 21 mg TD QDAY [facility] Last Admin: 01/18/21 14:00 Dose: Not Given Documented by: Ondansetron HCl (Ondansetron 4 Mg/2 Ml Inj) 4 mg IV Q8H PRN PRN Reason: Nausea And Vomiting Sertraline HCl (Sertraline 50 Mg Tab) 50 mg PO QDAY [facility] Last Admin: 01/18/21 23:30 Dose: 50 mg Documented by: Witch Janet/Glycerin (Witch Janet/ Glycerin Pad) 1 each TP PRN PRN PRN Reason: Hemorrhoids/cleansing/soothing Mental Status Exam - Vital signs Last Vital Signs Temp 98.1 F 01/19/21 00:41 Pulse 57 L 01/19/21 00:41 Resp 14 01/19/21 01:35 BP 132/72 01/19/21 00:41 Pulse Ox 99 01/19/21 00:41 Results Result Diagrams: 01/18/21 06:40 All other labs normal.
[2021-01-19] MEDS: SERTRALINE 50 MG TAB PO SCH (09:38)
[2021-01-19] MEDS: FERROUS SULFATE 325 MG TAB PO SCH (09:38)
[2021-01-19 11:35] VITALS: BP 159/91
--- NOTE | 2021-01-19 12:49 | Event Note ---
Date: 01/19/21 (RN called to notify me of elevated BP) I was outside the hospital at the time of this call RN reported pt's BP elevated X 2 (146/84, 152/91)this AM. Gave order to send to L&D for 24hr MGSO4 . RN called back shortly stating pt refused therapy and wanted to leave AMA. I called and spoke with the pt via phone and tried to explain the concerns of PreE in the PP period ie stroke, seizure, with untreated BP. Pt stated that her pressure would go down once she left "I was ready to go yesterday." Pt voiced understanding of leaving AMA Her RX were given to her and she was encouraged to f/u postop as instructed. the original d/c was written based on clearance by which the pt received Dr Reid notified of occurrence and pt's desire to leave AMA.
== END 2021-01-19 13:00 | disposition left against medical advice (07) | DRG 787 ==
LOC: APU 13:15 → OB 20:54
PROVIDERS: ADMIT Obstetrics & Gynecology; ATTEND Obstetrics & Gynecology
PROC: 10D00Z1 Extraction of Products of Conception, Low, Open Approach (ICD-10-PCS; principal; 2021-01-17)
PROC: 3E0T3BZ Introduction of Anesthetic Agent into Peripheral Nerves and Plexi, Percutaneous Approach (ICD-10-PCS; 2021-01-17)
DX: O34.211 Maternal care for low transverse scar from previous cesarean delivery (principal); O10.92 Unspecified pre-existing hypertension complicating childbirth; D62 Acute posthemorrhagic anemia; Z3A.39 39 weeks gestation of pregnancy; Z37.0 Single live birth; Z53.29 Procedure and treatment not carried out because of patient's decision for other reasons; Z20.822 Contact with and (suspected) exposure to COVID-19; O99.345 Other mental disorders complicating the puerperium; F53.0 Postpartum depression; O99.344 Other mental disorders complicating childbirth; F41.9 Anxiety disorder, unspecified; O90.81 Anemia of the puerperium
CPT/HCPCS: 36415; 85014; 85018; 85025; 85027; 86850; 86900; 86901; G0378; C1765; J0690; J1100; J1885; J2370; J2405; J2765; J3490; J7120; U0003

== ENCOUNTER 2021-01-31 00:17 | Observation (INO) | payer OTHER, MEDICAID ==
[2021-01-31] MEDS ORDERED: hydrALAZINE 20 MG/1 ML INJ IV ONE (03:22)
[2021-01-31] MEDS ORDERED: METOCLOPRAMIDE 10 MG/2 ML INJ IV ONE (03:24)
[2021-01-31] MEDS ORDERED: MAGNESIUM SULFATE 40GM/1000ML 40 GM/1,000 ML BAG IV ONE (03:26)
[2021-01-31] MEDS ORDERED: MAGNESIUM SULFATE 4 GM/100 ML BAG IV ONE (03:26)
--- NOTE | 2021-01-31 03:27 | Emergency Department Report ---
ED General Adult HPI - General Chief complaint: High BP Stated complaint: HEADACHE/C SECTION LEAKING/POST DELIVERY 01/17 PUI?: No Time Seen by Provider: 01/31/21 03:13 Source: patient, RN notes reviewed, old records reviewed Mode of arrival: Ambulatory Limitations: No Limitations - History of Present Illness Initial comments: During the history and physical examination, I am chaperoned by nurse Juana Gomez The patient is a 35-year-old female. Her [employer] doctor is Dr. Reid. Past medical history includes polycystic kidneys, , ovarian cyst, and presumed depression. Patient presents to the ER today with a complaint of nontraumatic headache, which is not sudden or thunderclap in nature, not maximal in intensity, frontal and bitemporal, associated with high blood pressure, lower extremity swelling, and no loss of vision. No fever, no vomiting, no chest pain. Positive abdominal cramping. Also complains of bloody/purulent discharge from wound. No dysuria. Positive scant vaginal bleeding. No body aches or Covid symptoms. Positive foot swelling. No Covid symptomatology. Called of her [employer] and she was instructed to come to the emergency room for evaluation. -: Gradual, hour(s) Location: head, abdomen Severity scale (0 -10): 0 Quality: aching Consistency: constant Improves with: none Worsens with: none - Related Data Home Medications Medication Instructions Recorded Confirmed Last Taken Multivitamin Tablet 1 tab PO DAILY 01/17/21 01/31/21 01/31/21 10:00 Previous Rx's Medication Instructions Recorded Last Taken Type Cyclobenzaprine [Flexeril] 10 mg PO TID PRN #20 tablet 04/20/16 Unknown Rx cephALEXin [Keflex] 500 mg PO Q8HR #21 capsule 07/01/20 Unknown Rx Nitrofurantoin Calhoun/M-Cryst 100 mg PO Q12HR #14 capsule 09/06/20 Unknown Rx [Macrobid CAP] Ferrous Sulfate [Feosol 325 MG tab] 325 mg PO BID #60 tablet 01/17/21 Unknown Rx Ibuprofen [Motrin] 800 mg PO TID PRN #30 tablet 01/17/21 Unknown Rx Lidocain2.5%/Prilocai2.5% [Emla] 5 gm TP ONCE #1 tube 01/17/21 Unknown Rx oxyCODONE /ACETAMINOPHEN [Percocet 1 - 2 tab PO Q6HR PRN #20 tablet 01/17/21 Unknown Rx 5/325 mg] Sertraline [Zoloft] 50 mg PO QDAY #30 tablet 01/19/21 01/31/21 10:00 Rx traZODone [Desyrel] 50 mg PO QHS #30 tab 01/19/21 Unknown Rx NIFEdipine XL [Procardia Xl] 60 mg PO Q12HR #30 tab 01/31/21 Unknown Rx Allergies Allergy/AdvReac Type Severity Reaction Status Date / Time No Known Allergies Allergy Verified 01/31/21 08:28 ED Review of Systems ROS: Stated complaint: HEADACHE/C SECTION LEAKING/POST DELIVERY 01/17 Other details as noted in HPI Constitutional: malaise, weakness. denies: fever Eyes: denies: eye discharge, vision change Respiratory: denies: cough Cardiovascular: denies: chest pain Gastrointestinal: abdominal pain. denies: nausea, vomiting, diarrhea Genitourinary: other (Persistent vaginal bleeding since ). denies: dysuria Musculoskeletal: denies: back pain Neurological: headache, weakness (No focal extremity weakness) Hematological/Lymphatic: denies: easy bleeding ED Past Medical Hx - Past Medical History Previous Medical History?: Yes Hx Hypertension: Yes Hx Congestive Heart Failure: No Hx Diabetes: No Hx Deep Vein Thrombosis: No Hx Renal Disease: Yes (POLYCYSTIC KIDNEY) Hx Sickle Cell Disease: No Hx Arthritis: Yes Hx Seizures: No Hx Asthma: No Hx COPD: No Hx HIV: No Additional medical history: PCD, Vaginal delivery X 1 - Surgical History Past Surgical History?: Yes Additional Surgical History: x 2, Left knee, Removal of ovarian cyst - Social History Smoking Status: Former Smoker - Medications Home Medications: Home Medications Medication Instructions Recorded Confirmed Last Taken Type Cyclobenzaprine [Flexeril] 10 mg PO TID PRN #20 tablet 04/20/16 01/31/21 Unknown Rx cephALEXin [Keflex] 500 mg PO Q8HR #21 capsule 07/01/20 01/31/21 Unknown Rx Nitrofurantoin Calhoun/M-Cryst 100 mg PO Q12HR #14 capsule 09/06/20 01/31/21 Unknown Rx [Macrobid CAP] Ferrous Sulfate [Feosol 325 MG tab] 325 mg PO BID #60 tablet 01/17/21 01/31/21 Unknown Rx Ibuprofen [Motrin] 800 mg PO TID PRN #30 tablet 01/17/21 01/31/21 Unknown Rx Lidocain2.5%/Prilocai2.5% [Emla] 5 gm TP ONCE #1 tube 01/17/21 01/31/21 Unknown Rx Multivitamin Tablet 1 tab PO DAILY 01/17/21 01/31/21 01/31/21 10:00 History oxyCODONE /ACETAMINOPHEN [Percocet 1 - 2 tab PO Q6HR PRN #20 tablet 01/17/21 01/31/21 Unknown Rx 5/325 mg] Sertraline [Zoloft] 50 mg PO QDAY #30 tablet 01/19/21 01/31/21 01/31/21 10:00 Rx traZODone [Desyrel] 50 mg PO QHS #30 tab 01/19/21 01/31/21 Unknown Rx NIFEdipine XL [Procardia Xl] 60 mg PO Q12HR #30 tab 01/31/21 Unknown Rx ED Physical Exam - General Limitations: No Limitations General appearance: alert, anxious - Head Head exam: Present: atraumatic, normocephalic - Eye Eye exam: Present: normal appearance, PERRL, EOMI. Absent: nystagmus - ENT ENT exam: Present: normal exam, normal orophraynx, mucous membranes moist, normal external ear exam - Neck Neck exam: Present: normal inspection, full ROM. Absent: tenderness, meningismus - Respiratory Respiratory exam: Present: normal lung sounds bilaterally. Absent: respiratory distress, wheezes, rales, rhonchi, stridor, decreased breath sounds - Cardiovascular Cardiovascular Exam: Present: regular rate, normal rhythm, normal heart sounds. Absent: bradycardia, tachycardia, irregular rhythm, systolic murmur, diastolic murmur, rubs, gallop - GI/Abdominal GI/Abdominal exam: Present: soft, tenderness, other (There is suprapubic tenderness of her scar. There is induration and minimal discharge noted.). Absent: distended, guarding, rebound, rigid, pulsatile mass - Extremities Exam Extremities exam: Present: normal inspection, full ROM, pedal edema (1+ pedal edema noted bilaterally), other (2+ pulses noted in the bilateral upper and lower extremities. There is no palpable cord. negative Homans sign. Muscular compartments are soft. The pelvis is stable.). Absent: calf tenderness - Back Exam Back exam: Present: normal inspection, full ROM. Absent: tenderness, CVA tenderness (R), CVA tenderness (L), paraspinal tenderness, vertebral tenderness - Neurological Exam Neurological exam: Present: alert, oriented X3, normal gait, other (No facial droop. Tongue midline. Extraocular movements intact bilaterally. Facial sensation intact to light touch in V1, V2, V3 distribution bilaterally. 5 and a 5 strength in 4 extremities. Sensation intact to light touch in 4 extremities.). Absent: motor sensory deficit - Psychiatric Psychiatric exam: Present: anxious - Skin Skin exam: Present: warm, dry, intact, normal color. Absent: rash ED Course Vital Signs 01/31/21 01/31/21 01/31/21 03:02 03:41 04:00 Temperature 98.8 F Pulse Rate 66 56 L 69 Respiratory 20 18 20 Rate Blood Pressure 162/96 Blood Pressure 169/93 151/90 [Right] O2 Sat by Pulse 100 99 100 Oximetry 01/31/21 01/31/21 01/31/21 04:30 05:24 05:30 Temperature Pulse Rate 59 L 56 L 52 L Respiratory 21 14 22 Rate Blood Pressure 152/91 134/71 Blood Pressure [Right] O2 Sat by Pulse 100 100 Oximetry 01/31/21 01/31/21 01/31/21 06:00 07:00 08:00 Temperature Pulse Rate 53 L 54 L 54 L Respiratory 21 22 18 Rate Blood Pressure 152/91 152/91 Blood Pressure [Right] O2 Sat by Pulse 100 100 100 Oximetry 01/31/21 08:26 Temperature Pulse Rate Respiratory Rate Blood Pressure Blood Pressure 134/71 [Right] O2 Sat by Pulse Oximetry - Reevaluation(s) Reevaluation #1: 01/31/21 04:22 Differential diagnosis, including but not limited to: Migraine headache, tension headache, cluster headache, venous sinus thrombosis, preeclampsia, wound, infection, dehiscence, induration, hematoma Assessment and plan: 35-year-old female with 2 complaints. Complaint #1, headache associate with hypertension status post delivery. Treat empirically for preeclampsia, start hydralazine as patient is relatively bradycardic with a heart rate of 66, start magnesium load, and magnesium infusion. Obtain noncontrast CT scan of the brain, and CT scan of brain with contrast to assess for potential venous sinus thrombosis. Obtain appropriate preeclampsia laboratory studies, including urinalysis, and discussed with [employer] to arrange admission for definitive management. Complaint #2, potential wound/induration/infection. Treat pain, obta in CT scan of the abdomen pelvis with IV contrast. Reassess after initial data points. Obtain appropriate laboratory studies. Discussed with [employer]. Have discussed this plan of care with the patient, who is amenable to the aforementioned. Reassess after diagnostics have resulted. 01/31/21 05:41 Patient feeling improved. Laboratory studies reviewed and appreciated. Urinalysis pending. Discussed with nurse retail warehouse supervisor working with Dr. Nereida Sharpe Patient is accepted to the labor and delivery floor, however, the team requests callback once a CT scan brain, CT scan abdomen pelvis have been formally interpreted. 01/31/21 06:16 CT scan of the brain negative for acute findings. CT scan of the abdomen pelvis shows findings. Defer to receiving OB team to further manage pelvic fluid. ED Medical Decision Making - Lab Data Result diagrams: 01/31/21 03:31 01/31/21 03:31 Vital Signs 01/31/21 01/31/21 03:02 03:41 Temperature 98.8 F Pulse Rate 66 56 L Respiratory 20 18 Rate Blood Pressure 169/93 151/90 [Right] O2 Sat by Pulse 100 99 Oximetry Lab Results 01/31/21 01/31/21 01/31/21 Range/Units 03:31 03:31 03:31 WBC 7.3 (4.5-11.0) K/mm3 RBC 3.16 L (3.65-5.03) M/mm3 Hgb 10.2 (10.1-14.3) gm/dl Hct 30.1 L (30.3-42.9) % MCV 95 (79-97) fl MCH 32 (28-32) pg MCHC 34 (30-34) % RDW 14.2 (13.2-15.2) % Plt Count 380 (140-440) K/mm3 Lymph % (Auto) 31.3 (13.4-35.0) % Calhoun % (Auto) 5.9 (0.0-7.3) % Eos % (Auto) 2.0 (0.0-4.3) % Baso % (Auto) 0.6 (0.0-1.8) % Lymph # (Auto) 2.3 (1.2-5.4) K/mm3 Calhoun # (Auto) 0.4 (0.0-0.8) K/mm3 Eos # (Auto) 0.1 (0.0-0.4) K/mm3 Baso # (Auto) 0.0 (0.0-0.1) K/mm3 Seg Neutrophils % 60.2 (40.0-70.0) % Seg Neutrophils # 4.4 (1.8-7.7) K/mm3 PT 13.0 (12.2-14.9) Sec. INR 0.93 (0.87-1.13) Fibrinogen 410 (211-480) mg/dl Sodium 142 (137-145) mmol/L Potassium 3.6 (3.6-5.0) mmol/L Chloride 105.1 (98-107) mmol/L Carbon Dioxide 23 (22-30) mmol/L Anion Gap 18 mmol/L BUN 7 (7-17) mg/dL Creatinine 0.8 (0.6-1.2) mg/dL Estimated GFR > 60 ml/min BUN/Creatinine Ratio 9 % Glucose 88 (65-100) mg/dL Uric Acid 5.3 (3.5-7.6) mg/dL Calcium 8.9 (8.4-10.2) mg/dL Magnesium (1.7-2.3) mg/dL Total Bilirubin < 0.20 (0.1-1.2) mg/dL AST 15 (5-40) units/L ALT 10 (7-56) units/L Alkaline Phosphatase 111 (35-129) units/L Total Creatine Kinase (30-135) units/L Total Protein 6.5 (6.3-8.2) g/dL Albumin 4.1 (3.9-5) g/dL Albumin/Globulin Ratio 1.7 % Salicylates (2.8-20.0) mg/dL Acetaminophen (10.0-30.0) ug/mL 01/31/21 01/31/21 01/31/21 Range/Units 03:31 03:31 03:31 WBC (4.5-11.0) K/mm3 RBC (3.65-5.03) M/mm3 Hgb (10.1-14.3) gm/dl Hct (30.3-42.9) % MCV (79-97) fl MCH (28-32) pg MCHC (30-34) % RDW (13.2-15.2) % Plt Count (140-440) K/mm3 Lymph % (Auto) (13.4-35.0) % Calhoun % (Auto) (0.0-7.3) % Eos % (Auto) (0.0-4.3) % Baso % (Auto) (0.0-1.8) % Lymph # (Auto) (1.2-5.4) K/mm3 Calhoun # (Auto) (0.0-0.8) K/mm3 Eos # (Auto) (0.0-0.4) K/mm3 Baso # (Auto) (0.0-0.1) K/mm3 Seg Neutrophils % (40.0-70.0) % Seg Neutrophils # (1.8-7.7) K/mm3 PT (12.2-14.9) Sec. INR (0.87-1.13) Fibrinogen (211-480) mg/dl Sodium (137-145) mmol/L Potassium (3.6-5.0) mmol/L Chloride (98-107) mmol/L Carbon Dioxide (22-30) mmol/L Anion Gap mmol/L BUN (7-17) mg/dL Creatinine (0.6-1.2) mg/dL Estimated GFR ml/min BUN/Creatinine Ratio % Glucose (65-100) mg/dL Uric Acid (3.5-7.6) mg/dL Calcium (8.4-10.2) mg/dL Magnesium 1.80 (1.7-2.3) mg/dL Total Bilirubin (0.1-1.2) mg/dL AST (5-40) units/L ALT (7-56) units/L Alkaline Phosphatase (35-129) units/L Total Creatine Kinase 109 (30-135) units/L Total Protein (6.3-8.2) g/dL Albumin (3.9-5) g/dL Albumin/Globulin Ratio % Salicylates < 0.3 L (2.8-20.0) mg/dL Acetaminophen 5.0 L (10.0-30.0) ug/mL - EKG Data -: EKG Interpreted by Fl EKG shows normal: sinus rhythm Rate: normal - EKG Data 01/31/21 04:24 EKG interpreted at 03: 41 This is a sinus rhythm, bradycardia, with a normal P wave axis, left axis deviation, left anterior fascicular block, poor R wave progression, unremarkable intervals, motion artifact. This is an abnormal EKG. This is not a STEMI. - Radiology Data Radiology results: pending, report reviewed, image reviewed CT ABDOMEN AND PELVIS WITHOUT AND WITH CONTRAST INDICATION / CLINICAL INFORMA TION: Pt complains of lower abdominal pain, Status-post . TECHNIQUE: Axial CT images were obtained through the abdomen and pelvis before and after IV contrast. All CT scans at this location are performed using CT dose reduction for ALARA by means of automated exposure control. COMPARISON: None available. FINDINGS: LOWER CHEST: Lung bases are clear Abdomen/Pelvis: Bilateral kidneys are abnormal with multiple cysts. The liver, spleen, adrenal glands and pancreas appear normal. Gallbladder appears normal. The uterus is distended with prominent endometrial fluid. Moderate free fluid is seen in the pelvis. Bowel loops appear normal without bowel obstruction. Appendix appears normal. Urinary bladder is unremarkable. No acute bone findings are seen. IMPRESSION: 1. Abnormal appearance with multiple cysts in bilateral kidneys. Fines could represent posterior kidney disease. 2. Thickening of the distal esophagus and GE junction. Clinical correlation. 3. Uterus is distended with large amount of endometrial fluid. Moderate to large amount of free fluid in the pelvis. Pelvic ultrasound follow-up may be helpful. Signer Name: Xander Ellsworth MD Signed: 01/31/2021 4:59 AM Workstation Name: [id number] [facility] [address] [place] [address] Cat Scan Report Signed Patient: SOPHIA SANTIAGO MR#: [id number] : Acct:[id number] Age/Sex: 35 / F ADM Date: 01/31/21 Loc: ED Attending Dr: Ordering Physician: ARIAN MUELLER MD Date of Service: 01/31/21 Procedure(s): CT head/brain wo/w con Accession Number(s): [id number] cc: ARIAN MUELLER MD CT head/brain wo/w con INDICATION / CLINICAL INFORMATION: 35 years Female; Patient complains of a Post- headache. TECHNIQUE: Routine CT head without contrast. All CT scans at this location are performed using CT dose reduction for ALARA by means of automated exposure control. COMPARISON: None. FINDINGS: BRAIN / INTRACRANIAL CONTENTS: The brain parenchyma appears to demonstrate appropriate attenuation. The ventricular system is within normal limits in size and configuration. There is no CT evidence of acute intracranial hemorrhage or significant mass effect. No intracranial enhancing lesions are identified at. There appears be contrast opacification of the dural venous sinuses. 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 ORBITS: No significant abnormality of visualized orbits. SINUSES / MASTOIDS: There is mild focal opacification along the anterior right ethmoid air air cells CRANIOCERVICAL JUNCTION: No significant abnormality. ADDITIONAL FINDINGS: None. IMPRESSION: 1. The pre and postcontrast CT of the head are unremarkable without evidence of acute intracranial process. 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 Signer Name: Arian Purcell MD Signed: 01/31/2021 6:09 AM Workstation Name: [id number] Transcribed By: MR Dictated By: Arian Purcell MD Electronically Authenticated By: Arian Purcell MD Signed Date/Time: 01/31/21608 DD/ 0 Critical Care Time: Yes Critical care time in (mins) excluding proc time.: 45 Critical care attestation.: If time is entered above; I have spent that time in minutes in the direct care of this critically ill patient, excluding procedure time. ED Disposition Clinical Impression: headache, Preeclampsia in period, Pelvic pain Disposition: OP ADMIT IP TO THIS HOSP Is pt being admited?: Yes Does the pt Need Aspirin: No Condition: Serious
[2021-01-31 04:30] LABS: Basophils % (Auto) 0.6 % (0.0-1.8); Eosinophils # (Auto) 0.1 K/mm3 (0.0-0.4); Hematocrit 30.1 % (30.3-42.9); Hemoglobin 10.2 gm/dl (10.1-14.3); Lymphocytes # (Auto) 2.3 K/mm3 (1.2-5.4); Lymphocytes % (Auto) 31.3 % (13.4-35.0); Mean Corpuscular HGB Conc 34 % (30-34); Mean Corpuscular Volume 95 fl (79-97); Monocytes # (Auto) 0.4 K/mm3 (0.0-0.8); Monocytes % (Auto) 5.9 % (0.0-7.3); Platelet Count 380 K/mm3 (140-440); Red Blood Count 3.16 M/mm3 (3.65-5.03); Red Cell Distribution Width 14.2 % (13.2-15.2)
[2021-01-31 04:36] LABS: INR 0.93 (0.87-1.13)
[2021-01-31 04:46] LABS: Alanine Aminotransferase 10 units/L (7-56); Albumin 4.1 g/dL (3.9-5); BUN/Creatinine Ratio 9; Blood Urea Nitrogen 7 mg/dL (7-17); Calcium 8.9 mg/dL (8.4-10.2); Hemolysis Index 0; Uric Acid 5.3 mg/dL (3.5-7.6)
--- NOTE | 2021-01-31 06:03 | Cat Scan Report ---
CT ABDOMEN AND PELVIS WITHOUT AND WITH CONTRAST INDICATION / CLINICAL INFORMATION: Pt complains of lower abdominal pain, Status-post . TECHNIQUE: Axial CT images were obtained through the abdomen and pelvis before and after IV contrast. All CT scans at this location are performed using CT dose reduction for ALARA by means of automated exposure control. COMPARISON: None available. FINDINGS: LOWER CHEST: Lung bases are clear Abdomen/Pelvis: Bilateral kidneys are abnormal with multiple cysts. The liver, spleen, adrenal glands and pancreas appear normal. Gallbladder appears normal. The uterus is distended with prominent endom etrial fluid. Moderate free fluid is seen in the pelvis. Bowel loops appear normal without bowel obst ruction. Appendix appears normal. Urinary bladder is unremarkable. No acute bone findings are seen. IMPRESSION: 1. Abnormal appearance with multiple cysts in bilateral kidneys. Fines could represent posterior kidn ey disease. 2. Thickening of the distal esophagus and GE junction. Clinical correlation. 3. Uterus is distended with large amount of endometrial fluid. Moderate to large amount of free fluid in the pelvis. Pelvic ultrasound follow-up may be helpful. Signer Name: Xander Ellsworth MD Signed: 01/31/2021 5:59 AM Workstation Name: [id number]
--- NOTE | 2021-01-31 06:14 | Cat Scan Report ---
CT head/brain wo/w con INDICATION / CLINICAL INFORMATION: 35 years Female; Patient complains of a Post- headache. TECHNIQUE: Routine CT head without contrast. All CT scans at this location are performed using CT dos e reduction for ALARA by means of automated exposure control. COMPARISON: None. FINDINGS: BRAIN / INTRACRANIAL CONTENTS: The brain parenchyma appears to demonstrate appropriate attenuation. T he ventricular system is within normal limits in size and configuration. There is no CT evidence of a cute intracranial hemorrhage or significant mass effect. No intracranial enhancing lesions are identi fied at. There appears be contrast opacification of the dural venous sinuses. However, there is devel opmental hypoplasia of the left transverse and sigmoid sinuses. ORBITS: No significant abnormality of visualized orbits. SINUSES / MASTOIDS: There is mild focal opacification along the anterior right ethmoid air air cells CRANIOCERVICAL JUNCTION: No significant abnormality. ADDITIONAL FINDINGS: None. IMPRESSION: 1. The pre and postcontrast CT of the head are unremarkable without evidence of acute intracranial pr ocess. There is enhancement of the dural venous sinuses though there is developmental hypoplasia of t he left transverse and sigmoid sinuses. Signer Name: Arian Purcell MD Signed: 01/31/2021 6:09 AM Workstation Name: [id number]
[2021-01-31] MEDS ORDERED: LACTATED RINGERS 1,000 ML IV SCH (07:00)
[2021-01-31] MEDS ORDERED: WITCH HAZEL/ GLYCERIN PAD TP PRN (07:30)
[2021-01-31] MEDS ORDERED: diphenhydrAMINE 25 MG CAP PO PRN (07:30)
[2021-01-31] MEDS ORDERED: LANOLIN/ZINC/DIMETHICONE (LANSINOH) 7 GM TP PRN (07:30)
[2021-01-31] MEDS ORDERED: IBUPROFEN 800 MG TAB PO PRN (07:30)
[2021-01-31] MEDS ORDERED: PROMETHAZINE 25 MG TAB PO PRN (07:30)
[2021-01-31] MEDS ORDERED: CALCIUM GLUCONATE 1000 MG/10 ML INJ IV SCH (07:30)
[2021-01-31] MEDS ORDERED: ONDANSETRON 4 MG/2 ML INJ IV PRN (07:30)
[2021-01-31] MEDS ORDERED: SENNOSIDES/DOCUSATE SODIUM 8.6/50 MG TAB PO SCH (08:00)
[2021-01-31] MEDS ORDERED: MAGNESIUM HYDROXIDE (MOM) ORAL LIQD UDC PO PRN (08:00)
[2021-01-31] MEDS ORDERED: MAGNESIUM SULFATE 40GM/1000ML 40 GM/1,000 ML BAG IV SCH (09:00)
[2021-01-31] MEDS ORDERED: HYDROCORTISONE 25 MG RECTAL SUPP PR PRN (10:00)
[2021-01-31] MEDS ORDERED: NICOTINE 21 MG/24 HR PATCH TD SCH (10:00)
[2021-01-31] MEDS ORDERED: NIFEdipine XL 30 MG TAB PO SCH (10:00)
[2021-01-31] MEDS ORDERED: PRENATAL VIT27-FE FUMARATE-FOLIC ACID VIT TAB PO SCH (10:00)
[2021-01-31] MEDS ORDERED: SERTRALINE 50 MG TAB PO SCH (10:00)
[2021-01-31] MEDS ORDERED: DOCUSATE SODIUM 100 MG CAP PO SCH (10:00)
[2021-01-31 10:33] LABS: Bilirubin,Urine NEG (Negative); Blood,Urine NEG (Negative); Color,Urine Straw (Yellow); Mucus,Urine FEW /HPF; Protein,Urine <15 mg/dL mg/dL (Negative); Urobilinogen,Urine < 2.0 mg/dL (<2.0)
[2021-01-31 10:43] LABS: Amphetamine Screen,Urine Negative; Benzodiazepines Screen,Urine Negative; Cannabinoid Screen,Urine Negative; Cocaine Screen,Urine Negative; Methadone Screen,Urine Negative; Opiate Screen,Urine Negative
--- NOTE | 2021-01-31 10:49 | History and Physical Report ---
History of Present Illness Date of examination: 01/31/21 Date of admission: 01/31/21 06:16 Chief complaint: ENCARNACION 14 days postop c/s History of present illness: Past History : 4 Term Births: 3 Premature Births: 1 Living Children: 4 Para: 4 Mult. Births: 0 Prev : 3 Aborta: 0 Elect. Ab: 0 Spont. Ab: 0 Ectopics: 0 # 1 Delivery date: 01/04/2008 Weeks Gestation: labor: yes Delivery type: Anesthesia type: epidural Sex: Male weight: 3-11 Comments: Went into labor and had distress # 2 Delivery date: 02/01/2017 Weeks Gestation: term labor: no Delivery type: Anesthesia type: epidural Infant Sex: Female weight: 5-11 # 3 Delivery date: 01/21/2019 Weeks Gestation: term labor: no Delivery type: Anesthesia type: spinal Infant Sex: Male weight: 5-17 #4 Delivery Date 01/17/2021 Weeks - 39 Delivery type - Past Medical History: Reviewed history and no changes required: Anemia Polycysitc kidney disease cHTN: no medications Sickle cell trait Bipolar Disease Depression Past Surgical History: Reviewed history and no changes required: Knee surgery : 2018 Past Medical History Anemia: positive Blood Transfusions: positive, Has had 7 blood transfusions Breast Disease: negative Diabetes: negative Heart Disease: negative Hypertension: positive, cHTN diagnosis, no meds Hepatitis/Liver Disease: negative Kidney Disease/UTI: positive, Polycystic kidney disease Neurologic/Epilepsy/Migraines: negative Phlebitis/Varicosities: negative Psychiatric: positive, Bipolor and depression Pulmonary Disease/Asthma: negative Thyroid Disease: negative Hospitalizations: positive 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 of genital herpes: no Partner hx. of genital herpes: no Rash, Viral, or Febrile illness since last LMP? no Varicella/Chicken Pox Status: Previous Disease TB Risk: no Genetic History Congenital Heart Defect: Mom: no Dad: no Aditi Disease: Mom: no Dad: no Thalassemia Mom: no Dad: no Neural Tube Defect Mom: no Dad: no Down's Syndrome Mom: no Dad: no James-Sachs Mom: no Dad: no Sickle Cell Disease/Trait Mom: yes Dad: no Hemophilia Mom: no Dad: no Muscular Dystrophy Mom: no Dad: no Cystic Fibrosis Mom: no Dad: no [place] Chorea Mom: no Dad: no Mental Retardation Mom: no Dad: no Fragile X Mom: no Dad: no Other Genetic/Chromosomal Disorder Mom: no Dad: no Child w/other defect Mom: no Dad: no Enviromental Exposures Enviromental Exposures Reviewed Xray Exposure: no Medication, drug, or alcohol use since LMP: no Chemical/Other Exposure: no Exposure to Cat Liter: no Hx of Parvovirus (Fifth Disease): no Occupational Exposure to Children: none Active Medications (reviewed today): 28-0.8 MG ORAL TABLET ( VIT-FE FUMARATE-FA) Take one tablet daily ONDANSETRON 8 MG ORAL TABLET DISINTEGRATING (ONDANSETRON) 1 po q12hrs prn PNV GUMMIES () Current Allergies (reviewed today): * SEASONAL ALLERGIES (Critical) Past History Past Medical History: other (see HPI) Past Surgical History: other (see HPI) 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 (see HPI) Family/Genetic History: other (see HPI) - Obstetrical History : 4 Para: 4 Number of Living Children: 4 Medications and Allergies Allergies Allergy/AdvReac Type Severity Reaction Status Date / Time No Known Allergies Allergy Verified 01/31/21 08:28 Home Medications Medication Instructions Recorded Confirmed Last Taken Type Cyclobenzaprine [Flexeril] 10 mg PO TID PRN #20 tablet 04/20/16 01/17/21 Unknown Rx cephALEXin [Keflex] 500 mg PO Q8HR #21 capsule 07/01/20 01/17/21 Unknown Rx Nitrofurantoin [place]/M-Cryst 100 mg PO Q12HR #14 capsule 09/06/20 01/17/21 Unknown Rx [Macrobid CAP] Ferrous Sulfate [Feosol 325 MG tab] 325 mg PO BID #60 tablet 01/17/21 Unknown Rx Ibuprofen [Motrin] 800 mg PO TID PRN #30 tablet 01/17/21 Unknown Rx Lidocain2.5%/Prilocai2.5% [Emla] 5 gm TP ONCE #1 tube 01/17/21 Unknown Rx Multivitamin Tablet 1 tab PO DAILY 01/17/21 01/17/21 01/16/21 10:00 History oxyCODONE /ACETAMINOPHEN [Percocet 1 - 2 tab PO Q6HR PRN #20 tablet 01/17/21 Unknown Rx 5/325 mg] Sertraline [Zoloft] 50 mg PO QDAY #30 tablet 01/19/21 Unknown Rx traZODone [Desyrel] 50 mg PO QHS #30 tab 01/19/21 Unknown Rx Active Meds: Active Medications Bisacodyl (Bisacodyl 10 Mg Rect Supp) 10 mg CA BID PRN PRN Reason: Constipation Calcium Gluconate (Calcium Gluconate 1000 Mg/10 Ml Inj) 1,000 mg IV ONCE OSMAN Stop: 02/03/21 07:29 Diphenhydramine HCl (Diphenhydramine 25 Mg Cap) 25 mg PO Q6H PRN PRN Reason: Itching Docusate Sodium (Docusate Sodium 100 Mg Cap) 100 mg PO BID OSMAN Hydrocortisone Acetate (Hydrocortisone 25 Mg Rectal Supp) 25 mg CA BID PRN PRN Reason: Hemorrhoids Magnesium Sulfate (Magnesium Sulfate 40gm/1000ml) 40 gm in 1,000 mls @ 25 mls/hr IV ONCE ONE Stop: 02/01/21 19:25 Last Admin: 01/31/21 08:18 Dose: 1 gm/hr, 25 mls/hr Documented by: Lactated Ringer's (Lactated Ringers) 1,000 mls @ 125 mls/hr IV DIRECT OSMAN Last Admin: 01/31/21 09:40 Dose: 100 mls/hr Documented by: Magnesium Sulfate (Magnesium Sulfate 40gm/1000ml) 40 gm in 1,000 mls @ 50 mls/hr IV DIRECT OSMAN Ibuprofen (Ibuprofen 800 Mg Tab) 800 mg PO Q6H PRN PRN Reason: Pain, Mild (1-3) Magnesium Hydroxide (Magnesium Hydroxide (Mom) Oral Liqd Udc) 30 ml PO HS PRN PRN Reason: Constipation Multi-Ingredient Ointment (Lanolin/Zinc/Dimethicone (Lansinoh) 7 Gm) 1 applic TP PRN PRN PRN Reason: Sore Nipples Multivitamins/Iron/Calcium ( [id number] Fumarate-Folic Acid Vit Tab) 1 each PO QDAY COUNTS INCLUDE 234 BEDS AT THE [facility] Nicotine (Nicotine 21 Mg/24 Hr Patch) 21 mg TD QDAY COUNTS INCLUDE 234 BEDS AT THE [facility] Nifedipine (Nifedipine Xl 30 Mg Tab) 30 mg PO QDAY COUNTS INCLUDE 234 BEDS AT THE [facility] Ondansetron HCl (Ondansetron 4 Mg/2 Ml Inj) 4 mg IV Q8H PRN PRN Reason: Nausea And Vomiting Promethazine HCl (Promethazine 25 Mg Tab) 25 mg PO Q6H PRN PRN Reason: Nausea And Vomiting Senna/Docusate Sodium (Sennosides/Docusate Sodium 8.6/50 Mg Tab) 2 tab PO Q12H OSMAN Sertraline HCl (Sertraline 50 Mg Tab) 50 mg PO QDAY COUNTS INCLUDE 234 BEDS AT THE [facility] Witch Janet/Glycerin (Witch Janet/ Glycerin Pad) 1 each TP PRN PRN PRN Reason: Hemorrhoid/cleansing/soothing Review of Systems All systems: negative - Vital Signs Vital signs: Vital Signs Temp Pulse Resp BP Pulse Ox 98.8 F 66 20 169/93 100 01/31/21 03:02 01/31/21 03:02 01/31/21 03:02 01/31/21 03:02 01/31/21 03:02 Temp Pulse Resp BP Pulse Ox 97.8 F 53 L 20 179/97 100 01/31/21 09:36 01/31/21 10:44 01/31/21 09:36 01/31/21 10:27 01/31/21 10:44 - Physical Exam Breasts: Positive: normal Cardiovascular: Regular rate Lungs: Positive: Normal air movement Abdomen: Positive: normal appearance, soft Genitourinary (Female): Positive: normal external genitalia Vulva: both: normal Vagina: Positive: normal moisture Uterus: Positive: normal size, normal contour Extremities: Positive: normal Deep Tendon Reflex Grade: Normal +2 Results Result Diagrams: 01/31/21 03:31 01/31/21 03:31 Abnormal lab results 01/31/21 01/31/21 01/31/21 Range/Units 03:31 03:31 03:31 RBC 3.16 L (3.65-5.03) M/mm3 Hct 30.1 L (30.3-42.9) % Urine WBC (Auto) (0.0-6.0) /HPF Salicylates < 0.3 L (2.8-20.0) mg/dL Acetaminophen 5.0 L (10.0-30.0) ug/mL 01/31/21 Range/Units Unknown RBC (3.65-5.03) M/mm3 Hct (30.3-42.9) % Urine WBC (Auto) 45.0 H (0.0-6.0) /HPF Salicylates (2.8-20.0) mg/dL Acetaminophen (10.0-30.0) ug/mL All other labs normal. Assessment and Plan 35 y/o admitted 14 days postop for severe symptomatic pre-e. Admission orders in EMR. pt denies ENCARNACION, epigastric pain or visual changes. Discussed plan of care for mag sulfate x 24hrs with PO procardia. Dr. chacon aware of admission. - Patient Problems (1) Smoker Current Visit: Yes Status: Acute Plan to address problem: nicotine patch (2) Non-compliance with treatment Current Visit: Yes Status: Acute Plan to address problem: patient had elevated blood pressures during period (same admission as delivery) pt refused to stay for treatment. (3) headache Current Visit: Yes Status: Acute (4) Preeclampsia in period Current Visit: Yes Status: Acute Plan to address problem: Magnesium sulfate 2gm/hr Dsouza for strict I&O PO procardia initiated for b/p control (5) delivery delivered Current Visit: No Status: Acute (6) Depression Current Visit: No Status: Acute Qualifiers: Depression Type: depression Qualified Code(s): O99.345 - Other mental disorders complicating the puerperium; F53.0 - depression; O90.6 - mood disturbance Plan to address problem: EPDS May also be situations - case management consult ordered (7) wound disruption Current Visit: Yes Status: Acute Plan to address problem: Small area of green/opaque drainage noted from left side of incision, approx 0.5cm, no tunneling no fever, WBCs normal aerobic and anaerobic cultures collected Wound care consult (8) Bradycardia by electrocardiogram Current Visit: Yes Status: Acute Plan to address problem: continue to monitor
--- NOTE | 2021-01-31 14:23 | Electrocardiograph Report ---
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
[2021-01-31] MEDS ORDERED: NIFEdipine XL 30 MG TAB PO ONE (17:52)
[2021-01-31] MEDS ORDERED: ACETAMINOPHEN 325 MG TAB PO PRN (18:39)
[2021-01-31 19:39] VITALS: BP 154/84
--- NOTE | 2021-01-31 20:09 | Event Note ---
Date: 01/31/21 pt called out to speak to provider, states she has to leave because her grandmother wont watch her children. She states FOC and sister will also not help her either. States she has to leave but states she will come to the office tomorrow for appointment. Advised patient that she could have a stroke or seizure and that we are activity adjusting her antihypertensive medications because her blood pressure is not controlled. Encouraged pt to explore other options for child custody evaluator, patient states her other family is in [place] and can not come help her. Patient acknowledges that leaving is not in her best interest and she will call 911 is she starts feeling ill. Pt states her 13y/o son will be at home with her as well as her 3 year old and 3 weeks old. Nurse Rosey in the room during discussion. Rx procardia sent to [facility] across the street.
[2021-01-31] MEDS ORDERED: NIFEdipine XL 60 MG TAB PO SCH (22:00)
== END 2021-01-31 21:00 | disposition left against medical advice (07) ==
LOC: ED 00:17 → LD 06:16
PROVIDERS: ADMIT Obstetrics & Gynecology; ATTEND Obstetrics & Gynecology
DX: O14.95 Unspecified pre-eclampsia, complicating the puerperium (principal); Z20.822 Contact with and (suspected) exposure to COVID-19; O89.4 Spinal and epidural anesthesia-induced headache during the puerperium; O99.345 Other mental disorders complicating the puerperium; F32.9 Major depressive disorder, single episode, unspecified; R00.1 Bradycardia, unspecified; O90.89 Other complications of the puerperium, not elsewhere classified; Q61.3 Polycystic kidney, unspecified; M19.90 Unspecified osteoarthritis, unspecified site; R10.2 Pelvic and perineal pain; Z79.899 Other long term (current) drug therapy; Z91.14 Patient's other noncompliance with medication regimen; Z98.891 History of uterine scar from previous surgery; Z87.891 Personal history of nicotine dependence; Z98.890 Other specified postprocedural states
CPT/HCPCS: 36415; 70470; 74177; 80053; 80307; 81001; 82550; 83735; 84550; 85025; 85384; 85610; 87075; 87076; 87086; 87116; 87186; 93005; 96365; 96366; 96375; 99291; G0378; J0360; J2765; J3475; J7120; Q9967; U0003; 80320; G0480

== ENCOUNTER 2021-06-12 22:36 | Emergency (ER) | payer MEDICAID, OTHER ==
[2021-06-13 00:24] LABS: Basophils # (Auto) 0.1 K/mm3 (0.0-0.1); Basophils % (Auto) 0.8 % (0.0-1.8); Eosinophils # (Auto) 0.2 K/mm3 (0.0-0.4); Eosinophils % (Auto) 2.4 % (0.0-4.3); Hematocrit 32.6 % (30.3-42.9); Hemoglobin 10.8 gm/dl (10.1-14.3); Lymphocytes # (Auto) 2.1 K/mm3 (1.2-5.4); Lymphocytes % (Auto) 25.7 % (13.4-35.0); Mean Corpuscular HGB Conc 33 % (30-34); Mean Corpuscular Volume 92 fl (79-97); Monocytes # (Auto) 0.5 K/mm3 (0.0-0.8); Monocytes % (Auto) 5.8 % (0.0-7.3); Platelet Count 282 K/mm3 (140-440); Red Blood Count 3.54 M/mm3 (3.65-5.03)
[2021-06-13 00:49] LABS: Alanine Aminotransferase 9 units/L (7-56); Albumin 4.1 g/dL (3.9-5); BUN/Creatinine Ratio 18; Blood Urea Nitrogen 18 mg/dL (7-17); Calcium 9.4 mg/dL (8.4-10.2); Hemolysis Index 5
[2021-06-13 01:13] LABS: Bilirubin,Urine NEG (Negative); Blood,Urine LG (Negative); Color,Urine Yellow (Yellow); Urobilinogen,Urine < 2.0 mg/dL (<2.0)
[2021-06-13 01:14] LABS: RBC,Urine > 182.0 /HPF (0.0-6.0)
[2021-06-13] MEDS ORDERED: IBUPROFEN 600 MG TAB PO ONE (01:20)
[2021-06-13] MEDS ORDERED: ONDANSETRON 4 MG ODT TAB PO ONE (01:20)
[2021-06-13] MEDS ORDERED: HYDROcodone/ACETAMINOPHEN 5-325 MG TAB PO ONE (01:20)
[2021-06-13] MEDS ORDERED: cephALEXin 500 MG CAP PO ONE (01:21)
[2021-06-13] MEDS ORDERED: medroxyPROGESTERone ACETATE 5 MG TAB PO ONE (01:40)
--- NOTE | 2021-06-13 01:59 | Emergency Department Report ---
ED Female HPI - General Chief complaint: Vaginal Bleeding Stated complaint: BLEEDING/AB PAIN Source: patient Mode of arrival: Ambulatory Limitations: No Limitations - History of Present Illness Initial comments: Patient is a A0 35-year-old -[place] female who is 4 months and who presents to the ED with complaint of acute onset heavy vaginal bleeding with large blood clots and severe pelvic pain for the last 2 days. Patient states that she has used multiple sanitary pads to help the blood flow with no relief. Patient states that this is the first time she is having a menstrual cycle or bleeding after delivering a baby 4 months ago. Patient nadeem es dizziness, syncope, chest pain or shortness of breath, fever, chills, dysuria, urinary frequency and urgency, back pain or diarrhea, nausea and vomiting. MD Complaint: vaginal bleeding, pelvic pain -: Sudden, days(s) (2) Location: suprapubic, other (Vaginal) Radiation: non-radiating Severity: severe Severity scale (0 -10): 8 Quality: cramping, sharp, crushing Consistency: constant Improves with: none Worsens with: menstrual period Are you Now?: No Associated Symptoms: denies other symptoms, vaginal bleeding, abdominal pain (Suprapubic pain). denies: vaginal discharge, nausea/vomiting, fever/chills, headaches, loss of appetite, dysuria, hematuria, shortness of breath, syncope, weakness - Related Data Sexually active: Yes : 4 Para: 4 A: 0 Home Medications Medication Instructions Recorded Confirmed Last Taken Multivitamin Tablet 1 tab PO DAILY 01/17/21 01/31/21 01/31/21 10:00 Previous Rx's Medication Instructions Recorded Last Taken Type Cyclobenzaprine [Flexeril] 10 mg PO TID PRN #20 tablet 04/20/16 Unknown Rx cephALEXin [Keflex] 500 mg PO Q8HR #21 capsule 07/01/20 Unknown Rx Nitrofurantoin [place]/M-Cryst 100 mg PO Q12HR #14 capsule 09/06/20 Unknown Rx [Macrobid CAP] Ferrous Sulfate [Feosol 325 MG tab] 325 mg PO BID #60 tablet 01/17/21 Unknown Rx Ibuprofen [Motrin] 800 mg PO TID PRN #30 tablet 01/17/21 Unknown Rx Lidocain2.5%/Prilocai2.5% [Emla] 5 gm TP ONCE #1 tube 01/17/21 Unknown Rx oxyCODONE /ACETAMINOPHEN [Percocet 1 - 2 tab PO Q6HR PRN #20 tablet 01/17/21 Unknown Rx 5/325 mg] Sertraline [Zoloft] 50 mg PO QDAY #30 tablet 01/19/21 01/31/21 10:00 Rx traZODone [Desyrel] 50 mg PO QHS #30 tab 01/19/21 Unknown Rx NIFEdipine XL [Procardia Xl] 60 mg PO Q12HR #30 tab 01/31/21 Unknown Rx Ibuprofen [Motrin] 800 mg PO Q8HR PRN #30 tablet 06/13/21 Unknown Rx cephALEXin [Keflex] 500 mg PO Q8HR #30 capsule 06/13/21 Unknown Rx medroxyPROGESTERone ACETATE 10 mg PO DAILY #10 tablet 06/13/21 Unknown Rx [Provera] Allergies Allergy/AdvReac Type Severity Reaction Status Date / Time No Known Allergies Allergy Verified 01/31/21 08:28 ED Review of Systems ROS: Stated complaint: BLEEDING/AB PAIN Other details as noted in HPI Constitutional: denies: chills, fever Eyes: denies: eye pain, eye discharge, vision change ENT: denies: ear pain, throat pain Respiratory: denies: cough, shortness of breath, wheezing Cardiovascular: denies: chest pain, palpitations Endocrine: no symptoms reported Gastrointestinal: abdominal pain (Suprapubic pain). denies: nausea, vomiting, diarrhea Genitourinary: abnormal menses (Heavy vaginal bleeding). denies: urgency, dysuria, discharge Musculoskeletal: denies: back pain, joint swelling, arthralgia Skin: denies: rash, lesions Neurological: denies: headache, weakness, paresthesias Psychiatric: denies: anxiety, depression Hematological/Lymphatic: denies: easy bleeding, easy bruising ED Past Medical Hx - Past Medical History Previous Medical History?: Yes Hx Hypertension: Yes Hx Congestive Heart Failure: No Hx Diabetes: No Hx Deep Vein Thrombosis: No Hx Renal Disease: Yes (POLYCYSTIC KIDNEY) Hx Sickle Cell Disease: No Hx Arthritis: Yes Hx Seizures: No Hx Asthma: No Hx COPD: No Hx HIV: No Additional medical history: PCD, - Surgical History Past Surgical History?: Yes Additional Surgical History: x 3, Left knee, Removal of ovarian cyst - Social History Smoking Status: Former Smoker - Medications Home Medications: Home Medications Medication Instructions Recorded Confirmed Last Taken Type Cyclobenzaprine [Flexeril] 10 mg PO TID PRN #20 tablet 04/20/16 01/31/21 Unknown Rx cephALEXin [Keflex] 500 mg PO Q8HR #21 capsule 07/01/20 01/31/21 Unknown Rx Nitrofurantoin [place]/M-Cryst 100 mg PO Q12HR #14 capsule 09/06/20 01/31/21 Unknown Rx [Macrobid CAP] Ferrous Sulfate [Feosol 325 MG tab] 325 mg PO BID #60 tablet 01/17/21 01/31/21 Unknown Rx Ibuprofen [Motrin] 800 mg PO TID PRN #30 tablet 01/17/21 01/31/21 Unknown Rx Lidocain2.5%/Prilocai2.5% [Emla] 5 gm TP ONCE #1 tube 01/17/21 01/31/21 Unknown Rx Multivitamin Tablet 1 tab PO DAILY 01/17/21 01/31/21 01/31/21 10:00 History oxyCODONE /ACETAMINOPHEN [Percocet 1 - 2 tab PO Q6HR PRN #20 tablet 01/17/21 01/31/21 Unknown Rx 5/325 mg] Sertraline [Zoloft] 50 mg PO QDAY #30 tablet 01/19/21 01/31/21 01/31/21 10:00 Rx traZODone [Desyrel] 50 mg PO QHS #30 tab 01/19/21 01/31/21 Unknown Rx NIFEdipine XL [Procardia Xl] 60 mg PO Q12HR #30 tab 01/31/21 Unknown Rx Ibuprofen [Motrin] 800 mg PO Q8HR PRN #30 tablet 06/13/21 Unknown Rx cephALEXin [Keflex] 500 mg PO Q8HR #30 capsule 06/13/21 Unknown Rx medroxyPROGESTERone ACETATE 10 mg PO DAILY #10 tablet 06/13/21 Unknown Rx [Provera] ED Physical Exam - General Limitations: No Limitations General appearance: alert, in no apparent distress - Head Head exam: Present: atraumatic, normocephalic, normal inspection - Eye Eye exam: Present: normal appearance, PERRL, EOMI Pupils: Present: normal accommodation - ENT ENT exam: Present: normal exam, normal orophraynx, mucous membranes moist, TM's normal bilaterally, normal external ear exam - Neck Neck exam: Present: normal inspection, full ROM - Respiratory Respiratory exam: Present: normal lung sounds bilaterally. Absent: respiratory distress, wheezes, chest wall tenderness, decreased breath sounds - Cardiovascular Cardiovascular Exam: Present: regular rate, normal rhythm, normal heart sounds. Absent: systolic murmur, diastolic murmur, rubs, gallop - GI/Abdominal GI/Abdominal exam: Present: soft, tenderness (Palpable mild suprapubic tenderness), normal bowel sounds. Absent: guarding, rebound, rigid, hyperactive bowel sounds, hypoactive bowel sounds, bruit - Bi-manual exam: Present: other (Pelvic exam deferred at this time) - Extremities Exam Extremities exam: Present: normal inspection, full ROM, normal capillary refill - Back Exam Back exam: Present: normal inspection, full ROM. Absent: tenderness, CVA tenderness (R), CVA tenderness (L), muscle spasm, paraspinal tenderness, vertebral tenderness - Neurological Exam Neurological exam: Present: alert, oriented X3, CN II-XII intact, normal gait, reflexes normal - Psychiatric Psychiatric exam: Present: normal affect, normal mood - Skin Skin exam: Present: warm, dry, intact, normal color. Absent: rash ED Course Vital Signs 06/12/21 23:40 Temperature 97.9 F Pulse Rate 85 Respiratory 18 Rate Blood Pressure 165/90 [Right] O2 Sat by Pulse 99 Oximetry ED Medical Decision Making - Lab Data Result diagrams: 06/13/21 00:12 06/13/21 00:12 - Medical Decision Making This is a A0 35-year-old -[place] female who is 4 months and who presents to the ED with complaint of acute onset heavy vaginal bleeding with large blood clots and severe pelvic pain for the last [address]es that she has used multiple sanitary pads to help the blood flow with no relief. Patient states that this is the first time she is having a menstrual cycle or bleeding after delivering a baby 4 months ago. In the ED, patient is alert and oriented x3 and is not in any distress. Patient is hemodynamically stable. Lab test results were reviewed and are all nonactionable except for urinalysis that showed significant urinary tract infection with significant blood in the urine. Patient was treated for pain in the ED and also received Keflex 1 g p.o. x1 and medroxyprogesterone 10 mg p.o. x1. 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 Patient is advised to return to the ED immediately if symptoms get worse. - Differential Diagnosis UTI; dysmenorrhea; ; ovarian cyst; uterine fibroids; metrorrhagia Critical care attestation.: If time is entered above; I have spent that time in minutes in the direct care of this critically ill patient, excluding procedure time. ED Disposition Clinical Impression: Menorrhagia with irregular cycle, Severe dysmenorrhea, Acute urinary tract infe ction, Dysfunctional uterine bleeding Disposition: 01 HOME / SELF CARE / HOMELESS Is pt being admited?: No Does the pt Need Aspirin: No Condition: Stable Instructions: Urinary Tract Infection, Adult, [id number], Menorrhagia, [id number], Abnormal Uterine Bleeding, [id number], Dysmenorrhea, [id number] Additional Instructions: All lab test results were reviewed and are all nonactionable except for urinalysis that showed urinary tract infection. Therefore take medications with food, drink plenty of fluids and follow-up with your REFUSE DRIVER physician in 5 to 7 days for reevaluation. Return to the ED immediately if symptoms get worse. Prescriptions: cephALEXin [Keflex] 500 mg PO Q8HR #30 capsule Ibuprofen [Motrin] 800 mg PO Q8HR PRN #30 tablet PRN Reason: Pain , Severe (7-10) medroxyPROGESTERone ACETATE [Provera] 10 mg PO DAILY #10 tablet Referrals: VINOD GAONA MD [Staff Physician] - 3-5 Days Forms: Work/School Release Form(ED) Time of Disposition: 02:01 Print Language: POLISH
[2021-06-13 02:53] VITALS: BP 145/85
== END 2021-06-13 02:47 | disposition home or self-care (01) ==
LOC: ED 22:36
DX: N94.6 Dysmenorrhea, unspecified (principal); N39.0 Urinary tract infection, site not specified; I10 Essential (primary) hypertension; M19.90 Unspecified osteoarthritis, unspecified site; Z87.891 Personal history of nicotine dependence; Z79.899 Other long term (current) drug therapy
CPT/HCPCS: 36415; 80053; 81001; 84703; 85025; 99283; Q0162